=== PATIENT | male | born 1960 | race Caucasian/White ===

== ENCOUNTER 2022-02-07 13:56 | Observation (INO) ==
[2022-02-07 14:33] LABS: Hematocrit (blood only) 45.5 % (42-52); Mean Corpuscular Hemoglobin 34.9 pg (25-34); Mean Corpuscular Hgb Conc 35.2 g/dL (32-36); Mean Corpuscular Volume 99.1 fL (80-100); Platelet Count 180 K/uL (130-400); RDW Coefficient of Variation 13.4 % (11.5-14.5); RDW Standard Deviation 48.2 fL (36.4-46.3); Red Blood Count 4.59 M/uL (4.7-6.1)
--- NOTE | 2022-02-07 14:37 | CT Scan Report ---
CT head/brain wo con CLINICAL HISTORY: 61 years-old Male with Stroke Alert. Acute strokelike symptoms TECHNIQUE: Multiple axial CT images of the head were obtained without contrast. A dose lowering tech nique was utilized adhering to the principles of ALARA. CT DOSE: 773.57 mGy.cm COMPARISON: CT temporal bone study 02/10/2018 FINDINGS: No acute intracranial hemorrhage, midline shift, intracranial mass, hydrocephalus, or abnormal extra- axial collection. Age-related involutional changes. Calcifications of the falx cerebri. White matter hypodensities are suggestive of chronic microvascular ischemic disease. Ill-defined hypodensities of the left parietal and occipital lobes r measure up to 5.6 cm within the left parietal lobe on image 2 1 series 2. Prior right mastoidectomy. The right middle ear ossicles are absent. Mild mucosal thickening of the right frontal sinus. IMPRESSION: 1. Subacute to chronic appearing left parietal and occipital lobe infarcts. 2. Involutional changes with chronic microvascular ischemic disease. ACT 112: Negative or not required by law. The above report was generated using voice recognition software. It may contain grammatical, syntax o r spelling errors. Electronically signed by: Ori Reyes M.D. 02/07/2022 2:36 PM
[2022-02-07 14:39] LABS: INR 1.2 (0.9-1.1); Partial Thromboplastin Ratio 1.1; Partial Thromboplastin Time 31.5 Seconds (21.0-31.0); Prothrombin Time 12.3 Seconds (9.0-12.0)
[2022-02-07 14:57] LABS: Albumin Globulin Ratio 1.4 (0.9-2); Albumin Level 4.2 gm/dl (3.4-5.0); BUN Creatinine Ratio 12.9 (10-20); Bilirubin,Total 1.3 mg/dl (0.2-1.0); Calcium 9.8 mg/dl (8.5-10.1); Creatinine Clr Calc Pharmacy 88.6 ml/min; Globulin 2.9 gm/dl (2.5-4.0); Magnesium 1.3 mg/dl (1.7-2.4); Potassium 4.3 mmol/L (3.5-5.1); Total Protein 7.1 gm/dl (6.0-8.3)
--- NOTE | 2022-02-07 14:57 | Emergency Department Note ---
Impression & Plan Stroke ADMIT ED Provider Note HPI: The patient is a 61-year-old male with history of atrial fibrillation, on anticoagulation, longstanding history of smoking, peripheral artery disease, presents emergency department chief complaint of visual changes that been ongoing for about the past 3 weeks. Patient states that he has a history of visual problems and normally is "right eye dominant". Patient is noted over the past several weeks that his vision seems to be better in his left eye. Patient states he is also had a visual field cut in his right peripheral vision. Patient states he was hoping his symptoms would resolve therefore did not seek medical care for several weeks, saw his primary care doctor today and was advised to come to the emergency department over concern for possible ischemic stroke as a source of his symptoms. On arrival here to the ED the patient is hemodynamically stable, he is in no acute distress, ROS: -Neuro: Visual changes, ataxia *10 point review systems was conducted and is otherwise negative unless stated above *Outpatient medications and allergy history reviewed PE: General: Alert, NAD HEENT: Normocephalic, atraumatic Eyes: Extraocular eye movement is intact, no scleral erythema Pulmonary: Clear to auscultation bilaterally, no wheezing Cardio: Regular rate and rhythm GI: Abdomen is soft, nontender : No suprapubic tenderness MSK: No evidence of trauma or malformation of the extremities, no edema Skin: No evidence of rash Neuro: Alert, no focal deficits 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: 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: - An order was placed for continuous cardiac monitoring - Patient was noted to be in sinus rhythm with rate of 60 EKG: Rate: 56 Rhythm: Sinus bradycardia Intervals: Within normal limits ST changes: No ST elevation Time: 1411 NIH STROKE SCALE: 1A: Level of consciousness Alert; keenly responsive 0 1B: Ask month and age Both questions right 0 2: Horizontal extraocular movements Normal 0 3: Visual elizabeth No visual loss 0 Partial hemianopia +1 4: Facial palsy Normal symmetry 0 5A: Left arm motor drift No drift for 10 seconds 0 5B: Right arm motor drift No drift for 10 seconds 0 6A: Left leg motor drift No drift for 5 seconds 0 6B: Right leg motor drift No drift for 5 seconds 0 7: Limb Ataxia Ataxia in 1 Limb - RUE +1 8: Sensation Normal; no sensory loss 0 9: Language/aphasia Normal; no aphasia 0 10: Dysarthria Normal 0 11: Extinction/inattention No abnormality 0 TOTAL NIH SCORE =2 Medical Decision Making: Patient presented to the emergency department with some ongoing visual changes for the past 2 to 3 weeks, states he has had a right-sided visual field cut, patient states that he is having some difficulty with ambulation and feels that he is "walking into things". Patient was not sure if this was anything serious therefore did not immediately seek any medical attention, he saw his PCP today and was referred to the emergency department to be evaluated for the possibility of a stroke. On arrival to the ED the patient is noted to have some ataxia on [id number] testing on the right side, he does complain of a right-sided visual field cut, NIH is 2. He does not have any drift of the extremities on testing against gravity, symmetrical facial movements are appreciated, speech is clear. CT imaging of the head without contrast shows evidence of what appeared to be subacute occipital and parietal stroke. Patient was given aspirin in the ED. Not considered a tPA candidate or candidate for aggressive endovascular therapy secondary to his symptoms being ongoing for several weeks now. I discussed the above findings with the patient, he is in agreement for admission for secondary stroke work-up. Case was discussed with the on-call hospitalist [facility], Dr. Angel, and pt was admitted in stable condition. Diagnosis: 1. Subacute stroke 2. Visual changes 3. Ataxia Disposition: Admission Lewis Thorne DO Emergency Medicine Past Med/Surg History Medical History Atrial fibrillation rate controlled on beta esther Deep vein thrombosis (DVT) per pt hx of roughly 5yrs ago Encounter for pre-operative examination Gout Hyperlipidemia jail current use of anticoagulant xarelto daily Mixed conductive and sensorineural hearing loss of both ears Peripheral arterial disease Poor historian Surgical History History of cardiac cath (~08/2020) @ [facility] no stents History of tooth extraction S/P aortobifemoral bypass surgery (~09[place]27/20[place] [facility] [place]illect[place] S/P wisdom tooth extraction Family History Father Hypertension Other Diabetes Malignant (primary) neoplasm, unspecified No family history of adverse response to anesthesia Denies family history of Ovarian cancer Prostate cancer Myocardial infarction Breast cancer Colorectal cancer Social History Smoking Status: Current every day smoker Tobacco Type: Cigarettes Cigarettes Per Day: 20-30; Second Hand Exposure: Yes; Hx Alcohol Use: Yes Alcohol type: hard liquor Hx Substance Use: No Preferred Language: Thai Communication Ability: Effective 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 Required: No Beliefs That Will Affect Care: None marital status: Current Living Situation: Significant Other current occupational status: employed current occupation: [employer] How many Children do You have: 2 Feels Safe at Home: Yes Childhood Exposure to Second-Hand Smoke: Yes caffeine: Yes (soda) Dental Care, Regularly: No Physical Activity Frequency: Daily Seatbelt Use: sometimes Sunscreen Use: No Assistive Devices: Denture - Upper, Denture - Lower, Glasses and Hearing Aid - Bilateral Allergies Allergies Allergy/AdvReac Type Severity Reaction Status Date / Time No Known Allergies Allergy Mild Verified 02/07/22 15:23 Home Meds Home Medications Medication Instructions Recorded Confirmed magnesium aspartate-potassium 1 cap PO BID cap 10/18/21 02/07/22 aspartate 250 mg-250 mg capsule allopurinol 300 mg tablet 300 mg PO HS 12/14/21 02/07/22 atorvastatin 20 mg tablet 20 mg PO HS 12/14/21 02/07/22 calcium carbonate 500 mg calcium 500 mg PO HS 12/14/21 02/07/22 (1,250 mg) tablet cholecalciferol (vitamin D3) 125 5,000 units PO HS 12/14/21 02/07/22 mcg (5,000 unit) capsule rivaroxaban 20 mg tablet (Xarelto) 20 mg PO HS 12/14/21 02/07/22 Previous Rx's Medication Instructions Recorded metoprolol succinate 50 mg 50 mg PO BID #60 tab 03/24/21 tablet,extended release 24 hr Results & Data (ED) Vital Signs Vital Signs - 24 hr 02/07/22 13:57 02/07/22 14:05 02/07/22 14:10 Temperature 37.1 C Temperature Source Temporal Artery Scan Pulse Rate 57 L Pulse Rate [Apical] 55 L Respiratory Rate 18 18 Blood Pressure 151/76 H Blood Pressure [Left Arm] 158/73 H Blood Pressure Mean 101 Blood Pressure Mean [Left Arm] 101 Pulse Oximetry 95 98 Oxygen Delivery Method Room Air Room Air Room Air Sepsis Recent Fever Within 48 Hours No Sepsis New/Unexplained Change in Mental Status No Sepsis Action Taken by Nursing No Action Required 02/07/22 15:11 Temperature Temperature Source Pulse Rate Pulse Rate [Apical] 56 L Respiratory Rate 18 Blood Pressure Blood Pressure [Left Arm] 158/81 H Blood Pressure Mean Blood Pressure Mean [Left Arm] 106 Pulse Oximetry 99 Oxygen Delivery Method Room Air Sepsis Recent Fever Within 48 Hours Sepsis New/Unexplained Change in Mental Status Sepsis Action Taken by Nursing Laboratory Data Result diagrams: 02/07/22 14:18 02/07/22 14:18 Lab Results 02/07/22 02/07/22 02/07/22 Range/Units 14:18 14:18 14:18 WBC 7.70 (4.8-10.8) K/uL RBC 4.59 L (4.7-6.1) M/uL Hgb 16.0 (14.0-18.0) g/dL Hct 45.5 (42-52) % MCV 99.1 (80-100) fL MCH 34.9 H (25-34) pg MCHC 35.2 (32-36) g/dL RDW Std Deviation 48.2 H (36.4-46.3) fL RDW Coeff of Sherri 13.4 (11.5-14.5) % Plt Count 180 (130-400) K/uL MPV 10.0 (7.4-10.4) fL PT 12.3 H (9.0-12.0) Seconds INR 1.2 H (0.9-1.1) APTT 31.5 H (21.0-31.0) Seconds PTT Ratio 1.1 Sodium 139 (136-145) mmol/L Potassium 4.3 (3.5-5.1) mmol/L Chloride 105 (98-107) mmol/L Carbon Dioxide 28 (21-32) mmol/L Anion Gap 6 (3-11) BUN 11 (6-23) mg/dl Creatinine 0.85 (0.6-1.4) mg/dl Est Cr Clr Drug Dosing 88.6 ml/min Est GFR ( Amer) 109.0 ml/min Est GFR (Non-Af Amer) 94.0 ml/min BUN/Creatinine Ratio 12.9 (10-20) Glucose 94 (70-99(Fasting)) mg/dl Calcium 9.8 (8.5-10.1) mg/dl Magnesium 1.3 L (1.7-2.4) mg/dl Total Bilirubin 1.3 H (0.2-1.0) mg/dl AST 20 (13-39) U/L ALT 19 (7-52) U/L Alkaline Phosphatase 61 (34-104) U/L Total Protein 7.1 (6.0-8.3) gm/dl Albumin 4.2 (3.4-5.0) gm/dl Globulin 2.9 (2.5-4.0) gm/dl Albumin/Globulin Ratio 1.4 (0.9-2) Imaging Data Radiologist's Impression: Head CT 02/07/22 14:10 CT head/brain wo con CLINICAL HISTORY: 61 years-old Male with Stroke Alert. Acute strokelike symptoms TECHNIQUE: Multiple axial CT images of the head were obtained without contrast. A dose lowering technique was utilized adhering to the principles of ALARA. CT DOSE: 773.57 mGy.cm COMPARISON: CT temporal bone study 02/10/2018 FINDINGS: No acute intracranial hemorrhage, midline shift, intracranial mass, hydrocephalus, or abnormal extra-axial collection. Age-related involutional changes. Calcifications of the falx cerebri. White matter hypodensities are suggestive of chronic microvascular ischemic disease. Ill-defined hypodensities of the left parietal and occipital lobes r measure up to 5.6 cm within the left parietal lobe on image 21 series 2. Prior right mastoidectomy. The right middle ear ossicles are absent. Mild mucosal thickening of the right frontal sinus. IMPRESSION: 1. Subacute to chronic appearing left parietal and occipital lobe infarcts. 2. Involutional changes with chronic microvascular ischemic disease. ACT 112: Negative or not required by law. The above report was generated using voice recognition software. It may contain grammatical, syntax or spelling errors. Electronically signed by: Ori Reyes M.D. 02/07/2022 2:36 PM Discharge Plan Visit Data Chief Complaint: Neuro Symptoms/Deficit Stated Complaint: BLURRY VISION, DIZZY, REF BY DR BOUCHER Provider: Lewis Thorne Discharge Problem: Stroke Forms Stand Alone Forms: My [facility] IfOnly Prescriptions Prescriptions: No Action metoprolol succinate 50 mg tablet extended release 24 hr 50 mg PO BID Qty: 60 RF: 11 magnesium, potassium aspartate 250-250 mg capsule 1 cap PO BID RF: 0 atorvastatin 20 mg tablet 20 mg PO HS RF: 0 calcium carbonate 500 mg calcium (1,250 mg) tablet 500 mg PO HS RF: 0 allopurinol 300 mg tablet 300 mg PO HS RF: 0 cholecalciferol (vitamin D3) 5,000 unit capsule 5,000 units PO HS RF: 0 Xarelto 20 mg tablet 20 mg PO HS RF: 0 Referrals Referrals: Didi Pop CRNP [Primary Care Provider] - Discharge Problem: Stroke Qualifiers: CVA mechanism: unspecified Qualified Code(s): I63.9 - Cerebral infarction, unspecified
[2022-02-07] MEDS ORDERED: ASPIRIN CHEW 324 MG PO STA (15:16)
--- NOTE | 2022-02-07 15:28 | History & Physical Report ---
Date of Service February 07, 2022 Assessment & Plan (1) Stroke: Plan: Lewis is a 61-year-old male with a past medical history of hyperlipidemia, alcohol dependence, intermittent claudication, coronary calcification, peripheral artery disease, A. fib, and history of aortofemoral bypass surgery who presents with 3 weeks of visual changes and loss of visual acuity in his right eye with a peripheral field cut. Did not seek medical attention at time of symptom onset, discussed with PCP when symptoms did not improve and was recommended to present to the ER. CVA, R visual field cut and ataxia - CT: Subacute to chronic appearing left parietal and occipital lobe infarcts. Involutional changes with chronic microvascular ischemic disease. Carotid Dopplers completed, pending read\ - F/u MRI pending - Reported R hand ataxia, slight increase in finger to nose tremor but seems to correct on L sided testing ?vision related Received full dose aspirin in ER Continue aspirin 81 mg daily Lipid panel pending Increase atorvastatin from 20 mg to 40 mg Follow-up MRI pending tPA not indicated due to onset of symptoms 3 weeks prior to presentation A1c pending Mag 1.3, repletion ordered repeat morning Bili 1.3, repeat pending. No transaminitis or right upper quadrant pain COVID pending - Echo pending. pt reports comliant with Xarelto and has not missed doses, but isn't a good historian by pill name only appearance. A. fib, rate controlled anticoagulated Continue Xarelto Continue metoprolol 50 mg p.o., dose reduced for slight bradycardia. - Patient poor historian, reports he does take his meds but is not sure which ones which and describes taking pills based on appearance and is not sure of the names - nsr at bedside assessment Hyperlipidemia Statin as noted - Denies hx of CAD, reports had a cardiac eval as part of his fem pop bipass at [facility] [place] Alcohol dependence - 2 drinks daily, recently 1 week etoh free without withdrawal. Last drink 1 day ago - Follow clinically Tobacco dependence Counseling provided, cessation encouraged and discussed pathology including risk of stroke/heart attack with tobacco use - Pt reports 'I enjoy it doc, I'll eventually anyway' Precontemplative - Denies patch/gum DVT PPx: DOAC Dispo: Tele Stroke Eval CODE: Full Diet: HH after dysphagia screen (2) Carotid bruit: (3) Hyperlipidemia: (4) Alcohol dependence, continuous drinking behavior: (5) Smoker: (6) Intermittent claudication: (7) Calcification of coronary artery: (8) Peripheral arterial disease: (9) Atrial fibrillation: (10) S/P aortobifemoral bypass surgery: History of Present Illness Primary Care Provider: JASSI Mcclure Lewis is a 61-year-old male with a past medical history of hyperlipidemia, alcohol dependence, intermittent claudication, coronary calcification, peripheral artery disease, A. fib, and history of aortofemoral bypass surgery who presents with 3 weeks of visual changes and loss of visual acuity in his right eye with a peripheral field cut. Did not seek medical attention at time of symptom onset, discussed with PCP when symptoms did not improve and was recommended to present to the ER. R eye vision worsened 3-4 weeks ago History of LEFT lazy eye with corrective lenses in the past. No history of RIGHT eye problems until 1 month ago. Lost peripheral vision in R eye, thought it would come back after a day or two. Headache at onset, minimal one at time of assessment. Endorses some poor coordination with R arm, feels his strength is completely normal for him. No weakness. No nausea, vomiting, diarrhea. +mild orthostatic hypotension once and a while, none in the last week No chest pain, chest pressure, or shortness of breath has Afib, cannot feel it. In sinus at time of assessment. Endorses he takes his medications daily and has not missed any doses. Lives with Pricilla Barrera a 'lady friend' who also helps him at home. Sees June Pop as an outpt Medical History: Reviewed Medications: Reviewed Surgical History: Reviewed Allergies: Reviewed Social History: Etoh 2 per day, usually a captain and coke. Not every day. Last drink 1 day, no history of withdrawal/shakes/seizure and had recently spent a whole week at [place] without EtoH for fem-pop bipass with no withdrawal. Tobacco use, 2 packs per day for 'oh at least 40 years'. Code Status: Full Code. Surrogate would be his brother Niranjan Rodriguez. Allergies Allergy/AdvReac Type Severity Reaction Status Date / Time No Known Allergies Allergy Mild Verified 02/07/22 15:23 Home Medications Medication Instructions Recorded Confirmed Type metoprolol succinate 50 mg 50 mg PO BID #60 tab 03/24/21 02/07/22 Rx tablet,extended release 24 hr magnesium aspartate-potassium 2 cap PO DAILY cap 10/18/21 02/07/22 History aspartate 250 mg-250 mg capsule allopurinol 300 mg tablet 300 mg PO HS 12/14/21 02/07/22 History atorvastatin 20 mg tablet 20 mg PO HS 12/14/21 02/07/22 History calcium carbonate 500 mg calcium 500 mg PO HS 12/14/21 02/07/22 History (1,250 mg) tablet cholecalciferol (vitamin D3) 125 5,000 units PO HS 12/14/21 02/07/22 History mcg (5,000 unit) capsule rivaroxaban 20 mg tablet (Xarelto) 20 mg PO QPM 12/14/21 02/07/22 History Past Med/Surg History Medical History Atrial fibrillation rate controlled on beta esther Deep vein thrombosis (DVT) per pt hx of roughly 5yrs ago Encounter for pre-operative examination Gout Hyperlipidemia retirement current use of anticoagulant xarelto daily Mixed conductive and sensorineural hearing loss of both ears Peripheral arterial disease Poor historian Surgical History History of cardiac cath (~08/2020) @ [facility] no stents History of tooth extraction S/P aortobifemoral bypass surgery (~09/27/20) @ [facility] [place] S/P tonsillectomy S/P wisdom tooth extraction Family History Father Hypertension Other Diabetes Malignant (primary) neoplasm, unspecified No family history of adverse response to anesthesia Denies family history of Ovarian cancer Prostate cancer Myocardial infarction Breast cancer Colorectal cancer Social History Smoking Status: Current every day smoker Tobacco Type: Cigarettes Cigarettes Per Day: 20-30; Second Hand Exposure: Yes; Hx Alcohol Use: Yes Alcohol type: hard liquor Hx Substance Use: No Preferred Language: Frisian Communication Ability: Effective Infusion Therapy Nurse Required: No Beliefs That Will Affect Care: None marital status: Current Living Situation: Significant Other current occupational status: employed current occupation: [employer] How many Children do You have: 2 Feels Safe at Home: Yes Childhood Exposure to Second-Hand Smoke: Yes caffeine: Yes (soda) Dental Care, Regularly: No Physical Activity Frequency: Daily Seatbelt Use: sometimes Sunscreen Use: No Assistive Devices: Denture - Upper, Denture - Lower, Glasses and Hearing Aid - Bilateral Review of Systems Review of Systems: All systems reviewed & are unremarkable except as noted in HPI & below Physical Exam Physical Exam: General: A&Ox3. NAD. Cooperative. HEENT: Atraumatic, normocephalic. Pulm: CTAB A&P. -wheezes, -rales, -rhonchi. Symmetrical chest rise. No increased work of breathing. No respiratory distress. Cardiac: RRR, -mrg. Radial pulses intact and symmetrical. Abdominal: Nontender, nondistended, soft. BS present. CRANIAL NERVES: II: Pupils equal and reactive, no relative afferent pupillary defect. R lateral/peripheral field cut. III, IV, : EOM intact. R exotropia which worsens on R lateral gaze and corrects on L medial gaze V: normal sensation in V1, V2, and V3 segments bilaterally VII: no asymmetry, no nasolabial fold flattening VIII: normal hearing to speech IX, X: normal palatal elevation, no uvular deviation XI: 5/5 head turn and 5/5 shoulder shrug bilaterally XII: midline tongue protrusion MOTOR: RUE: 5/5 Shoulder internal rotation, external rotation, flexion, extension, abduction, adduction 5/5 Elbow flexion/extension, wrist flexion/extension 5/5 certified personal trainer strength, finger flexion/extension, interosseus LUE: 5/5 Shoulder internal rotation, external rotation, flexion, extension, abduction, adduction 5/5 Elbow flexion/extension, wrist flexion/extension 5/5 certified personal trainer strength, finger flexion/extension, interosseus RLE: 5/5 to hip flexion knee flexion/extension, ankle dorsiflexion/plantarflexion LLE: 5/5 to hip flexion knee flexion/extension, ankle dorsiflexion/plantarflexion REFLEXES: 2/4 patellar SENSORY: Normal to touch in upper and lower extremities without deficit or asymmetry COORD: Normal finger to nose and heel to means, no tremor, no dysmetria. Does have some finger to nose poor coordination with R index finger but corrects when done on L side of body and ?related to vision. Results & Data Results & Data ([facility]) Vital Signs (Past 12 Hours) Vital Signs Temp Pulse Pulse Resp BP BP Pulse Ox 02/07/22 15:11 56 L 18 158/81 H 99 02/07/22 14:05 37.1 C 57 L 18 151/76 H 98 02/07/22 13:57 55 L 18 158/73 H 95 PG Care Time/CCT Total # of Minutes Spent Total Time Spent with Patient: Total time spent is greater than 50% in coordination of care (as documented) at patient's floor/unit and/or counseling patient: Coding Level of Care Code 70655 Initial Inpt Care Lvl 3 Diagnoses Stroke I63.9 CVA mechanism: unspecified Carotid bruit R09.89 Hyperlipidemia E78.5 Alcohol dependence, continuous drinking behavior F10.20 Smoker F17.200 Intermittent claudication I73.9 Calcification of coronary artery I25.10; I25.84 Peripheral arterial disease I73.9 Atrial fibrillation I48.91 S/P aortobifemoral bypass surgery Z95.828 (1) Stroke CVA mechanism: unspecified Qualified Code(s): I63.9 - Cerebral infarction, unspecified
[2022-02-07] MEDS ORDERED: ACETAMINOPHEN 325 MG TAB PO PRN (17:30)
[2022-02-07] MEDS ORDERED: PHARMACIST DISCHARGE MED REC CONSULT PRN (17:30)
--- NOTE | 2022-02-07 18:41 | Magnetic Resonance Report ---
MR brain wo con CLINICAL HISTORY: CVA. Right thigh peripheral vision loss and dizziness for 3 weeks. COMPARISON STUDY: CT brain from 02/07/2022 TECHNIQUE: Multiplanar multisequence images of the Brain were performed without IV contrast. Diffusi on weighted imaging and ADC mapping was also performed. FINDINGS: Extra-axial space: There is no evidence for a subdural hematoma, There are no extra-axial fluid jess ections. Ventricles and cisterns: The ventricles are normal in size and configuration. There is no evidence f or midline shift or mass effect. Parenchyma: MR confirms the presence of a subacute infarct within the left posterior parietal-occipit al lobe. Abnormal diffusion weighted imaging and ADC mapping are present characteristic of the subacu te nature of the infarct. No significant cerebral edema is seen. There is otherwise normal krueger-white differentiation. There is mild cerebral cortical atrophy presen t. The sulci and gyri appear normal without effacement. The midline structures are unremarkable. The posterior fossa structures appear normal. There is no evidence for mass lesion. Osseous structures: The paranasal sinuses are well aerated. The mastoid air cells are well aerated. Soft tissues: No focal soft tissue abnormalities are identified. IMPRESSION: 1. MR confirms a subacute infarct involving the left posterior parietal/occipital lobe with abnormal diffusion weighted imaging and ADC mapping at this site. 2. Mild cerebral cortical atrophy is also present. ACT 112: Negative or not required by law. Electronically signed by: Damian Stovall M.D. 02/07/2022 6:39 PM
--- NOTE | 2022-02-07 18:45 | Magnetic Resonance Report ---
MR angio head wo con CLINICAL HISTORY: CVA. Right peripheral vision loss and dizziness for 3 weeks COMPARISON: MR of the brain from 622 2 TECHNIQUE: 3-D time of flight MR angiographic images of the brain were also obtained without IV contr ast. FINDINGS: Posterior circulation: There is a dominant left vertebral artery when compared to the right. Midline basilic artery is present. The right posterior cerebral artery is patent. There is occlusion at the o rigin of the left posterior cerebral artery corresponding to the infarct seen on MRI of the brain. Anterior circulation: Both internal carotid arteries are patent. The anterior cerebral and middle cer ebral arteries are patent bilaterally. No aneurysm, or vascular malformation is seen. IMPRESSION: Abnormal MRA with complete occlusion of the origin of the left posterior cerebral artery correspondin g to the infarct seen on MRI of the brain. ACT 112: Negative or not required by law. Electronically signed by: Damian Stovall M.D. 02/07/2022 6:43 PM
[2022-02-07] MEDS: MAGNESIUM SULFATE / D5W 1 GM/100 ML BAG IV SCH ×3 (18:48→21:16)
[2022-02-07] MEDS ORDERED: NSS + 20MEQ KCL 20 MEQ/1,000 ML BAG IV SCH (19:30)
[2022-02-07] MEDS ORDERED: CALCIUM CARBONATE 1250MG TAB PO SCH (21:00)
[2022-02-07] MEDS ORDERED: RIVAROXABAN 20 MG TAB PO SCH (21:00)
[2022-02-07] MEDS ORDERED: ATORVASTATIN 40 MG TAB PO SCH (21:00)
[2022-02-07] MEDS ORDERED: CHOLECALCIFEROL 5,000 UNITS 125 MCG TAB PO SCH (21:00)
[2022-02-08 07:17] LABS: Basophils # (auto) 0.01 K/uL (0-0.2); Basophils % (auto) 0.1 %; Eosinophils # (auto) 0.09 K/uL (0-0.5); Eosinophils % (auto) 1.3 %; Hematocrit (blood only) 39.8 % (42-52); Hemoglobin 14.3 g/dL (14.0-18.0); Immature Granulocytes # (auto) 0.01 K/uL (0.00-0.02); Immature Granulocytes % (auto) 0.1 %; Lymphocytes # (auto) 2.05 K/uL (1.2-3.4); Lymphocytes % (auto) 30.3 %; Mean Corpuscular Hemoglobin 35.4 pg (25-34); Mean Corpuscular Hgb Conc 35.9 g/dL (32-36); Mean Corpuscular Volume 98.5 fL (80-100); Mean Platelet Volume 10.1 fL (7.4-10.4); Monocytes # (auto) 0.27 K/uL (0.11-0.59); Neutrophils # (auto) 4.34 K/uL (1.4-6.5); Neutrophils % (auto) 64.2 %; Platelet Count 145 K/uL (130-400); RDW Coefficient of Variation 13.2 % (11.5-14.5); Red Blood Count 4.04 M/uL (4.7-6.1); White Blood Count 6.77 K/uL (4.8-10.8)
[2022-02-08 07:39] LABS: BUN Creatinine Ratio 12.2 (10-20); Calcium 8.9 mg/dl (8.5-10.1); Chol HDL Ratio 3.7 (0-5); Est GFR (African American) 110.6 ml/min; Est GFR (Non-African American) 95.4 ml/min; Magnesium 1.6 mg/dl (1.7-2.4); Potassium 4.2 mmol/L (3.5-5.1)
--- NOTE | 2022-02-08 08:39 | Neurology Consultation ---
Date of Consultation February 08, 2022 Assessment & Plan (1) Homonymous hemianopsia due to recent cerebral infarction: (2) Stroke: (3) Carotid stenosis, bilateral: (4) Alcohol dependence, continuous drinking behavior: (5) Smoker: (6) Atrial fibrillation: this patient had the onset of vision problems 2-3 weeks ago (early January) with some occasional right upper extremity dysesthesias. He also had little bit of "wooziness" and balance issues in the be getting but does not have that currently. Patient had his stroke despite being on Xarelto. MRI reveals a medium-size left posterior parietal and left occipital stroke of a subacute nature, secondary to left posterior cerebral artery occlusion. On examination he has a right homonymous hemianopsia from this stroke. He has no other focal neurologic deficits. The patient has a history of significant vascular disease including peripheral arterial disease. He has bilateral, left greater than right carotid stenosis with the left being about 70% or so. Anticoagulants tend not to help small vessel ischemic disease and interestingly his carotid stenosis has progressed despite the anticoagulation. Risk factors for stroke include chronic, longstanding, heavy cigarette smoking, as well as dyslipidemia and probable hypertension. total cholesterol was 115 and triglycerides 257. In addition, the patient has a history of significant alcohol use. This may explain his general cerebral atrophy and possibly is mild memory deficits. Recommendations: 1. control blood pressure as you are doing, aiming for a mean arterial pressure of 95-100. 2. he is a high dose statin candidate . 3. Awaiting hemoglobin A1c 4. Agree with initiating antiplatelet medication to his anticoagulation. For now, 81 mg aspirin tablet daily. 5. discontinue cigarette smoking 6. Discontinue alcohol use. 7. I can follow up as an outpatient. Otherwise, please contact me if I can be of further assistance on this case. Overall, I spent a total of 90 minutes with this case including review of records, review of CT and MRI films, direct evaluation of the patient at bedside, and discussion of the case with the patient and RN at bedside as well as Dr. Osorio, including differential diagnosis and treatment options. History of Present Illness Reason for Consultation: Patient is a 61-year-old, who I was asked to see at the request of Dr. Osorio, for neurologic consultation regarding stroke. Requesting Physician: Dr. Osorio Attending Physician: Morteza Osorio MD History of Present Illness patient has a history of severe peripheral arterial disease, status post aortobifem bypass September 2020 [facility]. He also has a history of atrial fibrillation in the he has been chronically on Xarelto daily. He has a history of dyslipidemia gout and probable hypertension. He had DVT 5 years ago. He has bilateral hearing deficits requiring hearing aids. Patient states that about 2-3 weeks ago he noted episode of feeling dizzy. He describes this as a woozy week feeling he tried to walk or. Once he fell in the bathroom 2 weeks ago because of this. After this he noted that he was not seeing to the right. 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 His decreased vision to the right was the same and have last 2 weeks he had a couple of episodes of numbness and tingling in the right upper extremity. He also had headaches intermittently when he tried to driv e/concentrate. he could bump into things on the right when he walked. Finally, he decided to come to the emergency room after talking to his primary care physician. He arrived to the emergency room February 07 at 1:57 p.m., with a temperature of 37.1, pulse 55 and regular, respiratory rate 18, blood pressure 158/73, and O2 saturation 75%. He had no focal deficits on neurologic exam and his NIH stroke scale was 2 (1 for vision blurriness and 1 for "gait ataxia". CBC, chemistry, and liver profile were unremarkable. CT scan of the head showed subacute to chronic left parieto-occipital hyp odensity, consistent with stroke. I reviewed these films. MRI of the brain revealed a moderate-size left posterior parietal and occipital stroke of a subacute nature. There was mild generalized atrophy noted ( a little more advanced then would think for his age) and mild old small vessel ischemic changes of a nonspecific nature. I reviewed these films. MR angiography of the head revealed a left posterior cerebral artery occlusion at the origin. Carotid ultrasound showed left internal carotid artery stenosis of greater than 70% (worse than the previous study of June 2020. The right carotid was less than 50% stenosis and vertebrals were patent. Overnight and today he is in sinus Ray in the 40s and 50s. Blood pressure is 145/82. He has no headache this morning and his vision issues to the right are the same. He denies any numbness, tingling, or weakness on the right side. Additional history reveals that the patient drinks alcohol just about every day. He states that he has 2 rum and cokes per day but that each drink has 3 shots of rum in it. He has been doing this for quite a while and prior to this he drank beer. Allergies Allergy/AdvReac Type Severity Reaction Status Date / Time No Known Allergies Allergy Mild Verified 02/07/22 15:23 Home Medications Medication Instructions Recorded Confirmed Type metoprolol succinate 50 mg 50 mg PO BID #60 tab 03/24/21 02/07/22 Rx tablet,extended release 24 hr magnesium aspartate-potassium 1 cap PO BID cap 10/18/21 02/07/22 History aspartate 250 mg-250 mg capsule allopurinol 300 mg tablet 300 mg PO HS 12/14/21 02/07/22 History atorvastatin 20 mg tablet 20 mg PO HS 12/14/21 02/07/22 History calcium carbonate 500 mg calcium 500 mg PO HS 12/14/21 02/07/22 History (1,250 mg) tablet cholecalciferol (vitamin D3) 125 5,000 units PO HS 12/14/21 02/07/22 History mcg (5,000 unit) capsule rivaroxaban 20 mg tablet (Xarelto) 20 mg PO HS 12/14/21 02/07/22 History Patient History Medical History Atrial fibrillation rate controlled on beta esther Deep vein thrombosis (DVT) per pt hx of roughly 5yrs ago Encounter for pre-operative examination Gout 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 Mixed conductive and sensorineural hearing loss of both ears Peripheral arterial disease Poor historian Surgical History History of cardiac cath (~08/2020) @ [facility] no stents History of tooth extraction S/P aortobifemoral bypass surgery (~09/27/20) @ [facility] [place] S/P tonsillectomy S/P wisdom tooth extraction Family History Father , age 75 from a "bone disease" Hypertension Myocardial infarction Mother , age 83 with dementia Dementia Other Diabetes Malignant (primary) neoplasm, unspecified No family history of adverse response to anesthesia Denies family history of Ovarian cancer Prostate cancer Breast cancer Colorectal cancer Social History Smoking Status: Current every day smoker Tobacco Type: Cigarettes Age Started Using Tobacco: 20; packs per day: 2; Second Hand Exposure: Yes; Do You Dip or Chew Tobacco: No; Tobacco Cessation Education Requested by Patient: No Hx Alcohol Use: Yes Alcohol type: beer and hard liquor Alcohol Intake Frequency: 4 or More x per/Week Alcohol Intake Frequency Comment: see HPI Hx Substance Use: No Preferred Language: French Communication Ability: Effective Publications Editor Required: No Beliefs That Will Affect Care: None marital status: Current Living Situation: Alone current occupational status: employed current occupation: [employer] How many Children do You have: 2 Other Information That Helps Us Care for You: No Feels Safe at Home: Yes Safety Concerns: Feels Safe At This Time Childhood Exposure to Second-Hand Smoke: Yes caffeine: Yes (soda) Dental Care, Regularly: No Physical Activity Frequency: Daily Seatbelt Use: sometimes Sunscreen Use: No Assistive Devices: None Review of Systems Constitutional: no fever, no fatigue and no weakness Eyes: + loss of peripheral vision and + worsening vision; no diplopia and no eye pain Ear, Nose, Mouth, Throat: + hearing loss; no ear pain, no tinnitus, no dizziness, no snoring, no hoarseness and no dysphagia Respiratory: no cough and no dyspnea Cardiovascular: no chest pain, no palpitations and no lightheadedness Gastrointestinal: no abdominal pain, no nausea and no vomiting Musculoskeletal: no back pain, no neck pain, no radicular pain, no joint pain and no myalgia Integumentary: no rash and no lesions Neurologic: no gait abnormality, no localized weakness, no generalized weakness, no tingling, no numbness, no tremor(s), no abnormal movements, no headache(s), no abnormal speech, no confusion and no memory loss Psychiatric: no depression, no irritability, no anxiety, no difficulty concentrating, no confusion and no hallucinations Endocrine: no fatigue and no flushing Hematologic / Lymphatic: no easy bleeding and no easy bruising Allergy / Immunological: no urticaria and no problem reported Exam (Neuro) Physical Exam: The patient is right-handed. The patient is awake, alert, and attentive. Speech is normal without any aphasia or dysarthria. The patient can name objects, repeat phrases, and has normal spontaneous speech. Mentation and thought processes are intact, with orientation to person, place and time, and normal fund of knowledge. Attention and concentration are normal. Mood and affect are normal and appropriate. General appearance and grooming are normal. Short and long-term memory are intact. Pupils are 3 mm bilaterally and reactive to light. Extraocular eye muscles are intact without nystagmus. Visual acuity and visual elizabeth seem normal grossly to confrontation. There are no deficits to sensation in the face in all 3 distributions of the fifth cranial nerve bilaterally. Corneal reflexes are positive bilaterally. Facial strength and symmetry was normal bilaterally. Hearing Is markedly decreased bilaterally and he uses hearing age which helped considerably. Palate moves well without asymmetry. There is normal sternocleidomastoid and trapezius (shoulder shrug) strength bilaterally. Tongue is midline with good strength bilaterally. Neck has a full range of motion without discomfort. There are no cervical bruits bilaterally. There are no cranial or ocular bruits. Cervical, thoracic, and lumbar spine are nontender to palpation. Gait is narrow based, with good arm swing And turns, however, he was a little slow and cautious. Balance is normal eyes open or closed. With outstretched arms there is no drift. There are no resting, postural, or action tremors. There is no ataxia with finger to nose testing. There is good facility in the hands. No other abnormal involuntary movements are noted. 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 Motor strength is 5/5 diffusely in the legs bilaterally including hip flexors, quadriceps, hamstrings, gastrocnemius, tibialis anterior, tibialis posterior, and Peroneii muscles. Toe extensors are normal and there is good bulk in the extensor digitorum brevis muscles bilaterally. The limbs have good tone without rigidity or spasticity. There is no atrophy noted in the muscles. Muscle bulk is normal, there is no tenderness to palpation, no myotonia to percussion, and no fasciculations seen. Sensory examination is intact to touch and pin throughout all 4 limbs diffusely. Reflexes are 2/4 in the biceps, triceps, brachioradialis, and quadriceps tendons bilaterally. Achilles tendon reflexes were 1/4 bilaterally. There is no clonus bilaterally. Toes are downgoing with plantar stimulation bilaterally. Peripheral pulses are present and of normal quality distally in all 4 limbs. There is no peripheral edema noted in the limbs. Results & Data ([facility]) Vital Signs (Past 12 Hours) Vital Signs Temp Pulse Pulse Resp BP BP Pulse Ox 02/08/22 08:13 36.5 C 60 18 145/82 H 94 02/08/22 08:09 79 02/08/22 03:33 36.8 C 57 L 17 142/75 H 92 02/08/22 03:05 46 L 02/07/22 23:37 36.5 C 50 L 17 138/66 95 PG Care Time/CCT Total # of Minutes Spent Total Time Spent with Patient: Total time spent is greater than 50% in coordination of care (as documented) at patient's floor/unit and/or counseling patient: Coding Level of Care Code 91717 Inpt Consult Level 5 Diagnoses Stroke I63.9 CVA mechanism: unspecified Homonymous hemianopsia due to recent cerebral infarction I69.398; H53.469 Carotid stenosis, bilateral I65.23 Alcohol dependence, continuous drinking behavior F10.20 Smoker F17.200 Atrial fibrillation I48.91 Time Spent (min) 90 (1) Stroke CVA mechanism: unspecified Qualified Code(s): I63.9 - Cerebral infarction, unspecified
[2022-02-08] MEDS ORDERED: MAGNESIUM OXIDE 400 MG TAB PO SCH (09:00)
[2022-02-08] MEDS ORDERED: METOPROLOL SUCC 50MG EXT REL TAB PO SCH (09:00)
[2022-02-08] MEDS ORDERED: ASPIRIN 81 MG ECTAB PO SCH (09:00)
[2022-02-08 09:09] LABS: Estimated Average Glucose 105 mg/dl; Hemoglobin A1C 5.3 % (4.5-5.6)
[2022-02-08] MEDS ORDERED: OPTIRAY 320 125ml IV ONE (09:16)
--- NOTE | 2022-02-08 10:04 | CT Scan Report ---
CT angio neck with con CLINICAL HISTORY: ICA stenosis with CVA COMPARISON STUDY: None CT DOSE: 429.86 mGy.cm TECHNIQUE: CT Angio of the neck was performed.followed by image post processing with coronal, and sa gittal MIP reformats.. Stenosis assessment by NASCET criteria. Contrast Volume: Optiray 320, 120 ml FINDINGS: Vascular findings: Right common carotid artery: Patent without significant stenosis. Right internal carotid artery: Patent without significant stenosis. Right vertebral artery: Patent without significant stenosis. Left common carotid artery: Patent without significant stenosis. Left internal carotid artery: There is noncalcified plaque present at the origin of the left internal carotid artery with 99% stenosis present via NASCET criteria..Mild poststenotic dilatation is presen t of the proximal internal carotid artery. Left vertebral artery: Patent without significant stenosis. Nonvascular findings: The parotid and submandibular salivary glands appear normal. There is no enlarged cervical adenopathy noted. The airway appears patent. The thyroid gland appears within normal limits. Mild centrilobular emphysematous changes are seen involving the lung apices bilaterally.. Impression: 1. 99% stenosis of the origin of the left ICA with mild poststenotic dilatation. The patient is at [facility] for occlusion at any time. 2. Mild centrilobular emphysematous changes involving the lung apices bilaterally. A tiger text was sent to Dr. Tadeo. ACT 112: Negative or not required by law. Electronically signed by: Damian Stovall M.D. 02/08/2022 10:01 AM
--- NOTE | 2022-02-08 14:14 | Discharge Summary ---
Date of Service February 08, 2022 Admission HPI Per Admitting Provider Lewis is a 61-year-old male with a past medical history of hyperlipidemia, alcohol dependence, intermittent claudication, coronary calcification, peripheral artery disease, A. fib, and history of aortofemoral bypass surgery who presents with 3 weeks of visual changes and loss of visual acuity in his right eye with a peripheral field cut. Did not seek medical attention at time of symptom onset, discussed with PCP when symptoms did not improve and was recommended to present to the ER. R eye vision worsened 3-4 weeks ago History of LEFT lazy eye with corrective lenses in the past. No history of RIGHT eye problems until 1 month ago. Lost peripheral vision in R eye, thought it would come back after a day or two. Headache at onset, minimal one at time of assessment. Endorses some poor coordination with R arm, feels his strength is completely normal for him. No weakness. No nausea, vomiting, diarrhea. +mild orthostatic hypotension once and a while, none in the last week No chest pain, chest pressure, or shortness of breath has Afib, cannot feel it. In sinus at time of assessment. Endorses he takes his medications daily and has not missed any doses. Lives with Pricilla Barrera a 'lady friend' who also helps him at home. Sees June Pop as an outpt Medical History: Reviewed Medications: Reviewed Surgical History: Reviewed Allergies: Reviewed Social History: Etoh 2 per day, usually a captain and coke. Not every day. Last drink 1 day, no history of withdrawal/shakes/seizure and had recently spent a whole week at [place] without EtoH for fem-pop bipass with no withdrawal. Tobacco use, 2 packs per day for 'oh at least 40 years'. Code Status: Full Code. Surrogate would be his brother Niranjan Rodriguez. Principal Diagnosis Right homonymous hemianopsia 2/2 CVA Discharge Exam General: A&Ox3. NAD. Cooperative. HEENT: Atraumatic, normocephalic. Pulm: CTAB A&P. -wheezes, -rales, -rhonchi. Symmetrical chest rise. No increased work of breathing. No respiratory distress. Cardiac: RRR, -mrg. Radial pulses intact and symmetrical. Abdominal: Nontender, nondistended, soft. BS present. CRANIAL NERVES: II: Pupils equal and reactive, no relative afferent pupillary defect. R lateral/peripheral field cut. III, IV, : EOM intact. R exotropia which worsens on R lateral gaze and corrects on L medial gaze V: normal sensation in V1, V2, and V3 segments bilaterally VII: no asymmetry, no nasolabial fold flattening VIII: normal hearing to speech IX, X: normal palatal elevation, no uvular deviation XI: 5/5 head turn and 5/5 shoulder shrug bilaterally XII: midline tongue protrusion MOTOR: RUE: 5/5 Shoulder internal rotation, external rotation, flexion, extension, abduction, adduction 5/5 Elbow flexion/extension, wrist flexion/extension 5/5 data entry assistant strength, finger flexion/extension, interosseus LUE: 5/5 Shoulder internal rotation, external rotation, flexion, extension, abduction, adduction 5/5 Elbow flexion/extension, wrist flexion/extension 5/5 data entry assistant strength, finger flexion/extension, interosseus RLE: 5/5 to hip flexion , ankle dorsiflexion/plantarflexion LLE: 5/5 to hip flexion , ankle dorsiflexion/plantarflexion REFLEXES: 2/4 patellar SENSORY: Normal to touch in upper and lower extremities without deficit or asymmetry COORD: Continues with some finger to nose poor coordination with R index finger when tested to the right side of the body, but corrects when done on L side of body with no ataxia and likely related to vision Discharge Data Allergies Allergy/AdvReac Type Severity Reaction Status Date / Time No Known Allergies Allergy Mild Verified 02/07/22 15:23 Consultations 02/07/22 15:17 ED Decision to Admit Stat 02/07/22 17:30 Consult Neurology Routine 02/08/22 08:02 Consult Vascular Surgery Routine Ordered Studies 02/07/22 14:10 CT head/brain wo con Stat 02/07/22 17:30 MR angio head wo con Urgent MR brain wo con Routine 02/08/22 08:08 CT angio neck with con Routine Hospital Course (1) Stroke: Lewis is a 61-year-old male with a past medical history of hyperlipidemia, alcohol dependence, intermittent claudication, coronary calcification, peripheral artery disease, A. fib, and history of aortofemoral bypass surgery who presents with 3 weeks of visual changes and loss of visual acuity in his right eye with a peripheral field cut. Did not seek medical attention at time of symptom onset, discussed with PCP when symptoms did not improve and was recommended to present to the ER. On evaluation patient was found to have focal right homonymous hemianopsia. Follow-up MRI showed left sided parietal and occipital subacute CVA.Patient did have 99% stenosis of the origin of the left ICA at risk for occlusion. Patient did not show any new or worsening deficits during admission. Patient was started on aspirin daily and his atorvastatin was increased from 20 to 40 mg. While patient is a high-dose statin candidate, his LDL fraction was less than 40 and this was deferred to follow-up as outpatient with PCP/neurology and lipid recheck within 1 month. Neurology was consulted who agreed with blood pressure control, A1c check, initiating antiplatelet, tobacco cessation, alcohol cessation, and outpatient follow-up. tPA was not indicated due to onset of symptoms of approximately 3 weeks prior to ER visit. Given the high-grade stenosis seen on CT angio case was discussed with vascular surgery who recommended medical management at this time, with 2-week follow-up for potential CEA as outpatient. To do as outpatient: 1. Continue atorvastatin 40 mg daily. Repeat lipid and LFT check within 1 month 2. Continue aspirin 81 mg daily 3. Continue tobacco cessation efforts, patient generally precontemplative to contemplative during admission. Support resources offered, patient declined quit strategies/and RT 4. Follow-up with vascular surgery as outpatient 5. Ocular rehab as outpatient CVA, R visual field cut and ataxia - CT: Subacute to chronic appearing left parietal and occipital lobe infarcts. Involutional changes with chronic microvascular ischemic disease. - CTA-N: 1. 99% stenosis of the origin of the left ICA with mild poststenotic dilatation. The patient is at risk for occlusion at any time. 2. Mild centrilobular emphysematous changes involving the lung apices bilaterally. - MRI: 1. MR confirms a subacute infarct involving the left posterior parietal/occipital lobe with abnormal diffusion weighted imaging and ADC mapping at this site.2. Mild cerebral cortical atrophy is also present. - MRA: Abnormal MRA with complete occlusion of the origin of the left posterior cerebral artery corresponding to the infarct seen on MRI of the brain. - Reported R hand ataxia, slight increase in finger to nose tremor but seems to correct on L sided testing ?vision related Received full dose aspirin in ER Continue aspirin 81 mg daily Lipid panel with total cholesterol 115, LDL 33. High-dose statin deferred due to relatively low LDL, moderate potency atorvastatin 40 mg continued on discharge tPA not indicated due to onset of symptoms 3 weeks prior to presentation A1c normal Mag 1.3, repleted - Echo pending. pt reports comliant with Xarelto and has not missed doses, A. fib, rate controlled anticoagulated Continue Xarelto Continue metoprolol 50 mg p.o., dose reduced for slight bradycardia. - Patient poor historian, reports he does take his meds but is not sure which ones which and describes taking pills based on appearance and is not sure of the names - nsr at bedside assessment Hyperlipidemia Statin as noted - Denies hx of CAD, reports had a cardiac eval as part of [place] [facility] [place] Alcohol dependence - 2 drinks daily, recently 1 week etoh free without withdrawal. Last drink 1 day ago - Follow clinically Tobacco dependence Counseling provided, cessation encouraged and discussed pathology including risk of stroke/heart attack with tobacco use - Pt reports 'I enjoy it doc, I'll eventually anyway' Precontemplative to contemplative during admission - Denies patch/gum DVT PPx: DOAC Dispo: Tele Stroke Eval CODE: Full Diet: HH after dysphagia screen (2) Carotid bruit: (3) Hyperlipidemia: (4) Alcohol dependence, continuous drinking behavior: (5) Smoker: (6) Intermittent claudication: (7) Calcification of coronary artery: (8) Peripheral arterial disease: (9) Atrial fibrillation: (10) S/P aortobifemoral bypass surgery: Total Time Total Time Spent Total Time Spent (In Minutes): Time spend day of discharge 80 minutes including direct patient care, documentation, review of labs and images, and coordination of care. Discharge Plan Discharge Items Patient Disposition: Home - Home Health Services Reason For Visit: CVA Discharge Diagnosis: CVA Activity: Per Instructions section Non-emergency contact: Primary Care Provider and Surgeon Call non-emergency contact if: you have any medication questions Follow-up/Referrals: Didi Pop CRNP [Primary Care Provider] - Clifford Osman MD [Physician] - Walter Cabrera MD [Physician] - Diet: Heart Healthy Addtl Attending Provider Instructions: You were seen in the hospital for peripheral right vision loss. A MRI showed a medium sized left posterior parietal and left occipital stroke. Your case was discussed with neurology, you have been prescribed medications as below to help prevent further strokes. You were found to have severe stenosis of yourLeft ICA of 99% which could become occluded at any time. This was discussed with you and with vascular surgery who saw you in consultation. Medical management with medications as below was recommended, and a follow-up in their office in 2 weeks for carotid endarterectomy was recommended. You have been prescribed an antiplatelet medication to help prevent future strokes, aspirin. Please take aspirin 81 mg by mouth every day. You have been prescribed a cholesterol medication to help lower cholesterol and also stabilize plaques to prevent stroke. Please take atorvastatin 40 mg by mouth every evening. This replaces the 20 mg dose she had previously been prescribed. You are a candidate for a even higher (80 mg) dose, however 1 portion of your cholesterol was actually slightly low so this is being deferred for a moderate potency dose with close follow-up with your primary care physician and a lipid recheck in approximately 1 month. Your hemoglobin A1c was normal and did not indicate that you require treatment for diabetes. It is highly recommend that you quit cigarette smoking as this more than doubles your risk of having further strokes/heart attacks. Your stroke has affected your vision, and you have complete loss of your right peripheral visual field. You should not drive at this time, and should not drive unless you are able to be cleared either by your primary care physician or neurologist after outpatient follow-up. A follow-up appointment is being scheduled for you with your primary care physician, with whom you should be seen within 1 week, and with vascular surgery who will see you in approximately 2 weeks. If you develop any new or worsening symptoms including fever, chills, sweats, chest pain, chest pressure, difficulty breathing, uncontrolled nausea/vomiting, rash, wheezing, passing out or nearly passing out, bleeding, black/bloody bowel movements, or other new or concerning symptoms please call your primary care physician, or call 911 for re-evaluation in the emergency department if you are very concerned. Pending Studies at Discharge: No Stand-Alone Forms: My [employer], Smoking Cessation Medications and DC Order Prescriptions: New aspirin 81 mg Tablet,Delayed Release (Dr/Ec) 81 mg PO DAILY Qty: 30 RF: 0 Continued metoprolol succinate 50 mg tablet extended release 24 hr 50 mg PO BID Qty: 60 RF: 11 magnesium, potassium aspartate 250-250 mg capsule 1 cap PO BID RF: 0 calcium carbonate 500 mg calcium (1,250 mg) tablet 500 mg PO HS RF: 0 allopurinol 300 mg tablet 300 mg PO HS RF: 0 cholecalciferol (vitamin D3) 5,000 unit capsule 5,000 units PO HS RF: 0 Xarelto 20 mg tablet 20 mg PO HS RF: 0 Changed atorvastatin 20 mg tablet 40 mg PO HS Qty: 0 RF: 0 Discharge Orders: Discharge Order (Routine); Ordered 02/08/22 Ordered By: Morteza Osorio Admission Data Admit Date/Time: 02/07/22 15:45 Attending Provider: Morteza Osorio Admit Provider: Morteza Osorio Primary Care Provider: Didi Pop Other Providers: Morteza Osorio ; Clifford Osman ; Walter Cabrera Coding Level of Care Code D/C DAY MANAGEMENT >30 MINS Diagnoses Stroke I63.9 CVA mechanism: unspecified Carotid bruit R09.89 Hyperlipidemia E78.5 Alcohol dependence, continuous drinking behavior F10.20 Smoker F17.200 Intermittent claudication I73.9 Calcification of coronary artery I25.10; I25.84 Peripheral arterial disease I73.9 Atrial fibrillation I48.91 S/P aortobifemoral bypass surgery Z95.828
--- NOTE | 2022-02-08 14:20 | Consultation ---
Date of Consultation February 08, 2022 Assessment & Plan (1) Carotid stenosis, bilateral: Pt with severe l ICA stenosis on CTA. Pt's imaging reviewed by Dr Cabrera. Recommends pt undergo L CEA. Will see pt in office in 2 weeks to discuss further. Pt agreeable. History of Present Illness Reason for Consultation: JENI Attending Physician: Morteza Osorio MD History of Present Illness 61 yo m with hx of gout, hyperlipidemia, ETOH dependency, PAD, a fib, admitted with R sided vision disturbance, seen in consultation today for L ICA stenosis. Pt has hx of aortobi-iliac BPG at [facility] [place] in 09/[place]. Pt states he noticed the peripheral vision in his R eye was missing about 2-3 weeks ago. States he felt off-balance for 1 or 2 days as well, but this resolved. Vision changes have not changed. Denies PABLO, confusion, facial droop, unilateral extremity weakness numbness or tingling, chest pain, SOB, abd pain, N/V, rest pain, claudication, ulcers, other complaints. Pt smokes 2 PPD for many years. CTA neck demonstrates pre-occlusive L ICA stenosis. MRI brain demonstrates subacute L parietal infarct. Allergies Allergy/AdvReac Type Severity Reaction Status Date / Time No Known Allergies Allergy Mild Verified 02/07/22 15:23 Home Medications Medication Instructions Recorded Confirmed Type metoprolol succinate 50 mg 50 mg PO BID #60 tab 03/24/21 02/07/22 Rx tablet,extended release 24 hr magnesium aspartate-potassium 1 cap PO BID cap 10/18/21 02/07/22 History aspartate 250 mg-250 mg capsule allopurinol 300 mg tablet 300 mg PO HS 12/14/21 02/07/22 History atorvastatin 20 mg tablet 20 mg PO HS 12/14/21 02/07/22 History calcium carbonate 500 mg calcium 500 mg PO HS 12/14/21 02/07/22 History (1,250 mg) tablet cholecalciferol (vitamin D3) 125 5,000 units PO HS 12/14/21 02/07/22 History mcg (5,000 unit) capsule rivaroxaban 20 mg tablet (Xarelto) 20 mg PO HS 12/14/21 02/07/22 History aspirin 81 mg tablet,delayed 81 mg PO DAILY #30 tab 02/08/22 Rx release Patient History Medical History Atrial fibrillation rate controlled on beta esther Deep vein thrombosis (DVT) per pt hx of roughly 5yrs ago Encounter for pre-operative examination Gout 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 Mixed conductive and sensorineural hearing loss of both ears Peripheral arterial disease Poor historian Surgical History History of cardiac cath (~08/2020) @ [facility] no stents History of tooth extraction S/P aortobifemoral bypass surgery (~09/27/20) @ [facility] [place] S/P tonsillectomy S/P wisdom tooth extraction Family History Father , age 75 from a "bone disease" Hypertension Myocardial infarction Mother , age 83 with dementia Dementia Other Diabetes Malignant (primary) neoplasm, unspecified No family history of adverse response to anesthesia Denies family history of Ovarian cancer Prostate cancer Breast cancer Colorectal cancer Social History Smoking Status: Current every day smoker Tobacco Type: Cigarettes Age Started Using Tobacco: 20; packs per day: 2; Second Hand Exposure: Yes; Hx Alcohol Use: Yes Alcohol type: beer and hard liquor Alcohol Intake Frequency: 4 or More x per/Week Alcohol Intake Frequency Comment: see HPI Hx Substance Use: No Preferred Language: [place] Communication Ability: Effective Retail Service Technician Required: No Beliefs That Will Affect Care: None marital status: Single Current Living Situation: Alone current occupational status: employed current occupation: [employer] How many Children do You have: 2 Feels Safe at Home: Yes Childhood Exposure to Second-Hand Smoke: Yes caffeine: Yes (soda) Dental Care, Regularly: No Physical Activity Frequency: Daily Seatbelt Use: sometimes Sunscreen Use: No Assistive Devices: None Review of Systems Review of Systems: All systems reviewed & are unremarkable except as noted in HPI & below Physical Exam Constitutional: WD/WN, vitals as above cooperative and comfortable; not in distress ENMT: Ears: + hearing impairment Neck: trachea midline Respiratory: normal respiratory effort Auscultation: lungs clear to auscultation bilaterally and + diminished lung sounds Cardiovascular: Rate/Rhythm: + irregularly irregular Vessels: femoral pulses present, posterior tibial pulses present, dorsalis pedis pulses present and radial pulses present; + abnormal peripheral pulses Extremities: normal capillary refill; no edema Gastrointestinal (Abdomen): Inspection/Auscultation: abdomen normal to inspection and normal bowel sounds Percussion/Palpation: abdomen soft; abdomen nontender Musculoskeletal: no cyanosis or clubbing, extremities motor strength 5/5 Skin: no rashes, warm and dry Neurologic: moves all extremities and awake; no focal motor deficits and not confused Psychiatric: A+Ox3, euthymic affect Results & Data ([facility]) Vital Signs (Past 12 Hours) Vital Signs Temp Pulse Pulse Resp BP Pulse Ox 02/08/22 11:27 36.5 C 50 L 18 138/74 99 02/08/22 08:13 36.5 C 60 18 145/82 H 94 02/08/22 08:09 79 02/08/22 03:33 36.8 C 57 L 17 142/75 H 92 02/08/22 03:05 46 L
[2022-02-08] MEDS ORDERED: STROKE PATIENT DISCHARGE PRN (14:22)
--- NOTE | 2022-02-08 14:50 | Pharmacy Report ---
Pharmacist Stroke Counseling - Date of Service February 08, 2022 - Scope: Pharmacy has been consulted to provide medication discharge counseling for this patient admitted with [ischemic stroke] [hemorrhagic stroke] [transient ischemic attack] as per the Pharmacist Discharge Counseling for Stroke Patients Manuela morris - Medications on Discharge: Medication Instructions Recorded Confirmed magnesium aspartate-potassium 1 cap PO BID cap 10/18/21 02/07/22 aspartate 250 mg-250 mg capsule allopurinol 300 mg tablet 300 mg PO HS 12/14/21 02/07/22 calcium carbonate 500 mg calcium 500 mg PO HS 12/14/21 02/07/22 (1,250 mg) tablet cholecalciferol (vitamin D3) 125 5,000 units PO HS 12/14/21 02/07/22 mcg (5,000 unit) capsule rivaroxaban 20 mg tablet (Xarelto) 20 mg PO HS 12/14/21 02/07/22 Medication Instructions Recorded metoprolol succinate 50 mg 50 mg PO BID #60 tab 03/24/21 tablet,extended release 24 hr aspirin 81 mg tablet,delayed 81 mg PO DAILY #30 tab 02/08/22 release atorvastatin 20 mg tablet 40 mg PO HS #0 tab 02/08/22 - Action: The above medications, specifically ones for stroke treatment/prophylaxis, have been reviewed in detail with the patient and/or patient passenger relations representative(s) prior to discharge. This includes indication, common adverse reactions, drug interactions, and medication administration. Medication counseling has been employed using the teach-back method to ensure understanding. - Outcome: The patient and/or patient passenger relations representative(s) have demonstrated understanding of the medications. Additional comments: Reviewed medication changes with patient and he verbalized understanding of changes. Talked about tobacco cessation and discussed how there are OTC options available. No other questions/concerns from patient at this time Thank you for allowing pharmacy to be involved in the care of this patient. Please call [phone] with any additional questions
--- NOTE | 2022-02-08 22:53 | Electrocardiogram Report ---
Test Reason : Blood Pressure : / mmHG Vent. Rate : 056 BPM Atrial Rate : 056 BPM P-R Int : 150 ms QRS Dur : 078 ms QT Int : 438 ms P-R-T Axes : 056 046 029 degrees QTc Int : 422 ms Sinus bradycardia Otherwise normal ECG No previous ECGs available Confirmed by Kevan Smith ([id number]) on 02/08/2022 10:53:04 PM Referred By: Ponce Cortez Confirmed By:Kevan Smith
== END 2022-02-08 16:18 | disposition home health service (06) ==
LOC: ED 13:56 → EDINP 15:45 → INTOOBSV 15:45 → EDINP 17:00 → 2E 23:30

== ENCOUNTER 2022-03-19 05:29 | Inpatient (IN) ==
--- NOTE | 2022-03-13 09:25 | Anesthesiology Consultation ---
Date of Service March 13, 2022 Assessment & Plan (1) Encounter for pre-operative examination: - discharge summary 02/08/22 [facility]: "...hyperlipidemia, alcohol dependence, intermittent claudication, coronary calcification, peripheral artery disease, A. fib, and history of aortofemoral bypass surgery...focal right homonymous hemianopsia. Follow-up MRI showed left sided parietal and occipital subacute CVA.Patient did have 99% stenosis of the origin of the left ICA at risk for occlusion...tPA was not indicated due to onset of symptoms of approximately 3 weeks prior to ER visit. 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 Surgeon arranging preop COVID testing, scheduled 03/15/2022. Awaiting results. Chart Review Chart Review: Acceptable Risk for Surgery and Patient NOT seen in Pre Admission Testing History Surgery Operation Date: 03/19/22 07:30 Proposed Procedures p Carotid Endarterectomy - Walter Cabrera MD Height/Weight Height: 5 ft 8 in Weight: 68.039 kg Allergies Allergy/AdvReac Type Severity Reaction Status Date / Time No Known Allergies Allergy Mild Verified 03/06/22 11:16 Medications Home Medications Medication Instructions Recorded Confirmed Last Taken metoprolol succinate 50 mg 50 mg PO BID #60 tabs 03/24/21 03/06/22 02/07/22 tablet,extended release 24 hr magnesium aspartate-potassium 1 cap PO BID 10/18/21 03/06/22 02/07/22 aspartate 250 mg-250 mg capsule allopurinol 300 mg tablet 300 mg PO HS 12/14/21 03/06/22 02/06/22 calcium carbonate 500 mg calcium 500 mg PO HS 12/14/21 03/06/22 02/06/22 (1,250 mg) tablet cholecalciferol (vitamin D3) 125 5,000 units PO HS 12/14/21 03/06/22 02/06/22 mcg (5,000 unit) capsule rivaroxaban 20 mg tablet (Xarelto) 20 mg PO HS 12/14/21 03/06/22 02/06/22 aspirin 81 mg tablet,delayed 81 mg PO QPM 03/06/22 03/06/22 Unknown release atorvastatin 40 mg tablet 40 mg PO QPM 03/06/22 03/06/22 Unknown Past Medical History Medical History (Updated 03/13/22 @ 09:13 by Leslie Mehta PA-C) Alcohol dependence, continuous drinking behavior Atrial fibrillation rate controlled on beta esther - 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 CVA (cerebral vascular accident) 01/2022-residual visual field limitations and R hand ataxia Gout Hx of deep venous thrombosis taking xarelto Hyperlipidemia prison current use of anticoagulant xarelto daily 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 Milton - no stents: LM - medium caliber, 20% ostial stenosis LAD -medium caliber, 40% mid segment stenosis, small distal vessel wraps around apex. Circumflex -large caliber, gives off large bifurcating OM1 with 30% proximal stenosis. RCA -dominant, small caliber, 40-50 % diffuse proximal disease. Distal vessel/right PDA without significant disease. History of colonoscopy History of tooth extraction S/P aortobifemoral bypass surgery (~09/27/20) @ [facility] [place] S/P tonsillectomy S/P wisdom tooth extraction Social History Smoking Status: Current every day smoker tobacco type: cigarettes Smoking cigarettes per day: 1/2 pk/day Do You Dip or Chew Tobacco: No Hx Alcohol Use: Yes Alcohol type: hard liquor alcohol intake frequency: holidays/special occasions only Hx Substance Use: No substance use type: does not use Lab Results Anesthesia Preop Results Results Anesthesia Widget: WBC 6.77 K/uL (4.8-10.8) 02/08/22 Hgb 14.3 g/dL (14.0-18.0) 02/08/22 Hct 39.8 % (42-52) L 02/08/22 Plt 145 K/uL (130-400) 02/08/22 Na 138 mmol/L (136-145) 02/08/22 K 4.2 mmol/L (3.5-5.1) 02/08/22 Cl 108 mmol/L (98-107) H 02/08/22 CO2 28 mmol/L (21-32) 02/08/22 BUN 10 mg/dl (6-23) 02/08/22 Creat 0.82 mg/dl (0.6-1.4) 02/08/22 Glucose Level 87 mg/dl (70-99(Fasting)) 02/08/22 PT 12.3 Seconds (9.0-12.0) H 02/07/22 PTT 31.5 Seconds (21.0-31.0) H 02/07/22 INR 1.2 (0.9-1.1) H 02/07/22 HA1c 5.3 % (4.5-5.6) 02/08/22 SARS-CoV-2, RNA, NAAT NEGATIVE (NEGATIVE) 02/07/22 Testing Electrocardiogram Date: 02/07/22 Sinus bradycardia, rate 56 bpm Echocardiogram Date: 03/08/22 EF 65% Normal LV wall motion No LVH Normal LV diastolic function No significant valvular abnormalities Normal estimated PASPs, 18 mmHg Aortic root at sinus of Valsalva borderline dilated measuring 3.5 cm Cardiac Catheterization Date: 09/02/20 LM -medium caliber, 20% ostial stenosis LAD -medium caliber, 40% mid segment stenosis, small distal vessel wraps around apex. Circumflex -large caliber, gives off large bifurcating OM1 with 30% proximal stenosis. RCA -dominant, small caliber, 40-50 % diffuse proximal disease. Distal vessel/right PDA without significant disease Other Testing Neck CTA 02/07/22 Impression: 1. 99% stenosis of the origin of the left ICA with mild poststenotic dilatation. The patient is at risk for occlusion at any time. 2. Mild centrilobular emphysematous changes involving the lung apices bilaterally. Head MRA 02/07/22 Abnormal MRA with complete occlusion of the origin of the left posterior cerebral artery corresponding to the infarct seen on MRI of the brain. Brain MRI 02/07/22 1. MR confirms a subacute infarct involving the left posterior parie mitchell/occipital lobe with abnormal diffusion weighted imaging and ADC mapping at this site. 2. Mild cerebral cortical atrophy is also present. Head CT 02/07/22 1. Subacute to chronic appearing left parietal and occipital lobe infarcts. 2. Involutional changes with chronic microvascular ischemic disease. CT lung 06/09/21 1. Emphysema. 2. No concerning pulmonary lesion is identified. 3. There is no airspace consolidation or pleural effusion. 4. Advanced coronary artery calcification.
[2022-03-19] MEDS ORDERED: LACTATED RINGER'S 1,000 ML IV SCH (06:00)
[2022-03-19] MEDS ORDERED: CEFAZOLIN 1,000 MG/7.5 ML SYR IV SCH (06:00)
[2022-03-19] MEDS ORDERED: fentaNYL citrate 100 MCG/2 ML VIAL ONE (07:01)
[2022-03-19] MEDS ORDERED: HEPARIN (PORCINE) 1000 UNIT/ML 10 ML (CATH LAB USE ONLY) ONE (07:04)
[2022-03-19] MEDS ORDERED: THROMBIN FOR SOLN 20000 UNIT KIT ONE (07:05)
[2022-03-19] MEDS ORDERED: ATROPINE SULFATE 0.1 MG/ML 10ML SYR IV PRN (07:05)
[2022-03-19] MEDS ORDERED: ePHEDrine sulfate 50 MG/ML AMP IV PRN (07:05)
[2022-03-19] MEDS ORDERED: ceFAZolin 330 MG/ML 1 GM VIAL ONE (07:05)
[2022-03-19] MEDS ORDERED: HYDROmorphone INJ 1 MG/ML SYRINGE IV PRN (07:05)
[2022-03-19] MEDS ORDERED: LABETALOL HCL IV 5 MG/ML 20ML IV PRN (07:05)
[2022-03-19] MEDS ORDERED: EPINEPHrine INJ 1 MG/ML AMP ONE (07:05)
[2022-03-19] MEDS ORDERED: GELATIN SPONGE SZ 100 ONE (07:05)
[2022-03-19] MEDS ORDERED: LIDOCAINE 1% LOCAL 20 ML VIAL ONE (07:05)
[2022-03-19] MEDS ORDERED: PHENYLEPHRINE 100MCG/ML 5ML SYR IV PRN (07:05)
[2022-03-19] MEDS ORDERED: ONDANSETRON INJ 2 MG/ML 2 ML VIAL IV PRN (07:05)
[2022-03-19] MEDS ORDERED: BUPIVACAINE 0.5 % 5 MG/1 ML MPF 30ML VIAL ONE (07:05)
[2022-03-19] MEDS ORDERED: MEPERIDINE HCL 25 MG/ML CARP/VIAL IV PRN (07:05)
[2022-03-19] MEDS ORDERED: fentaNYL citrate 100 MCG/2 ML VIAL IV PRN (07:05)
[2022-03-19] MEDS ORDERED: MIDAZOLAM HCL 1 MG/ML 2ML VIAL ONE (07:14)
--- NOTE | 2022-03-19 08:14 | History & Physical Report ---
Date of Service March 19, 2022 History of Present Illness Primary Care Provider: JASSI Mcclure Chief Complaint rm#7 here for f/u from hospital, stroke several weeks ago, gait imbalance, nausea, diaphoresis. Peripheral vision loss. History of Present Illness I the pleasure of seeing Lewis today for follow-up. As you know he is a 61-year-old gentleman who was admitted to [facility] with visual problems in his right eye. He has known atrial fibrillation. On his work-up at that time he was found to have a 99% narrowing of his left internal carotid artery. He is on aspirin and Xarelto. He has had no other problems with the right eye. He has no cerebrovascular sufficiency from the left carotid lesion. Due to the amount of narrowing present we recommended a left carotid endarterectomy. He is here for discussion. He also has known peripheral vascular occlusive disease with aortobifemoral bypass done in the past. Review of Systems 10 systems were reviewed. There are no positive findings other than the HPI. Physical Exam Vitals & Measurements HR: 68 (Monitored) BP: 140/82 SpO2: 99% WT: 67.7 kg Input and Output - Last 24 hours (Last 8 hours) No I/O Data Found: The patient is awake alert and oriented x3. His blood pressure is 130/80 on the left 140/82 on the right. Radials carotid supratemporal's are +2 bilaterally. There is a carotid bruit present on the left side. Lungs are clear. Heart had a regular regular rate. Abdominal exam is benign. No abnormal dilatation of his aortic graft was appreciated. Femoral pulses are +2 bilaterally. Neurologic exam is intact to motor and sensory function. Assessment/Plan 1. Occlusion and stenosis of left carotid artery At this point due to the amount of narrowing present recommended a left carotid endarterectomy. He understood the risks options and benefits and agreed to go with this procedure. This will be scheduled in the near future. Thank you very much for letting us participate in the care of this patient. Sincerely, Jessa Cabrera MD Ordered: Echo TransTHORacic TTE Complete Problem List/Past Medical History Ongoing Carotid stenosis CHF NYHA class I Chronic HFrEF (heart failure with reduced ejection fraction) Paroxysmal A-fib Pre-op examination PVD (peripheral vascular disease) Tobacco user Historical No qualifying data Procedure/Surgical History REMOVAL OF TONSILS (1999) Surgery, bone removed from the ear (1999) Oral surgery, teeth extracted (1997) Medications Inpatient No active inpatient medications Home allopurinol, 300 mg, PO, Daily AndroGel Pump 20.25 mg/actuation (1.62%) transdermal gel, See Instructions, 2 refills aspirin 81 mg oral delayed release tablet, 81 mg= 1 tab, PO, Daily atorvastatin 20 mg oral tablet, 40 mg= 2 tab, PO, Daily calcium (as carbonate) 500 mg oral tablet, chewable, 500 mg= 1 tab, PO, Daily Metoprolol Succinate ER 50 mg oral tablet, extended release, 50 mg= 1 tab, PO, bid Potassium/magnesium Aspar, PO, Daily Tadalafil (Eqv-Adcirca) 20 mg oral tablet, See Instructions, 4 refills Vitamin D3, 500 Int_Unit, PO, Daily Xarelto Starter Pack 15 mg-20 mg oral kit, See Instructions Allergies NKA Social History Smoking Status Current every day heavy smoker Tobacco Current every day smoker, Cigarettes, Started age 21 Years. 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 [place]-[address], [address] [place], [place] [address] Result Type: .Outpt Ltr Date of Service: March 01, 2022 09:48 EDT Authorization Status: Final Subject: Consult Note Author or Import Date: MD Cabrera Eugene J on March 01, 2022 09:48 EDT Verified By: MD Cabrera Eugene J on March 01, 2022 09:48 EDT Encounter info: [id number], [place] [id number], Clinic, 03/01/2022 - 03/01/2022 Allergies Allergy/AdvReac Type Severity Reaction Status Date / Time No Known Allergies Allergy Mild Verified 03/19/22 05:46 Home Medications Medication Instructions Recorded Confirmed Type magnesium aspartate-potassium 1 cap PO BID 10/18/21 03/19/22 History aspartate 250 mg-250 mg capsule allopurinol 300 mg tablet 300 mg PO HS 12/14/21 03/19/22 History calcium carbonate 500 mg calcium 500 mg PO HS 12/14/21 03/19/22 History (1,250 mg) tablet cholecalciferol (vitamin D3) 125 5,000 units PO HS 12/14/21 03/19/22 History mcg (5,000 unit) capsule rivaroxaban 20 mg tablet (Xarelto) 20 mg PO HS 12/14/21 03/19/22 History aspirin 81 mg tablet,delayed 81 mg PO QPM 03/06/22 03/19/22 History release atorvastatin 40 mg tablet 40 mg PO QPM 03/06/22 03/19/22 History metoprolol succinate 50 mg 50 mg PO BID 03/19/22 03/19/22 History tablet,extended release 24 hr (Toprol XL) Past Med/Surg History Medical History Alcohol dependence, continuous drinking behavior Atrial fibrillation rate controlled on beta esther - 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 Milton - no stents: LM - medium caliber, 20% ostial stenosis LAD -medium caliber, 40% mid segment stenosis, small distal vessel wraps around apex. Circumflex -large caliber, gives off large bifurcating OM1 with 30% proximal stenosis. RCA -dominant, small caliber, 40-50 % diffuse proximal disease. Distal vessel/right PDA without significant disease. History of colonoscopy History of tooth extraction S/P aortobifemoral bypass surgery (~09/27/20) @ [facility] [place] 09/[place] S/P tonsillectomy S/P wisdom tooth extraction Family History Father , age 75 from a "bone disease" Myocardial infarction Hypertension Mother , age 83 with dementia Dementia Sister Diabetes Other Malignant (primary) neoplasm, unspecified No family history of adverse response to anesthesia Denies family history of Ovarian cancer Prostate cancer Breast cancer Colorectal cancer Social History Smoking Status: Current every day smoker Tobacco Type: Cigarettes Age Started Using Tobacco: 20; packs per day: 2; Cigarettes Per Day: 1/2 pk/day; Second Hand Exposure: No; Do You Dip or Chew Tobacco: No; Tobacco Cessation Education Requested by Patient: No Hx Alcohol Use: Yes Alcohol type: hard liquor Alcohol Intake Frequency: 4 or More x per/Week Alcohol Intake Frequency Comment: see HPI Hx Substance Use: No Preferred Language: Polish Communication Ability: Effective 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 Beliefs That Will Affect Care: None marital status: Single Current Living Situation: Significant Other current occupational status: employed current occupation: [employer] How many Children do You have: 2 Other Information That Helps Us Care for You: No Feels Safe at Home: Yes Safety Concerns: Feels Safe At This Time Childhood Exposure to Second-Hand Smoke: Yes caffeine: Yes (soda) Dental Care, Regularly: No Physical Activity Frequency: Daily Seatbelt Use: sometimes Sunscreen Use: No Assistive Devices: Denture - Upper, Denture - Lower, Glasses and Hearing Aid - Bilateral Results & Data ([facility]) Vital Signs (Past 12 Hours) Vital Signs Temp Pulse Resp BP Pulse Ox O2 Del Method 03/19/22 05:49 36.4 C L 50 L 18 154/81 H 99 Room Air
--- NOTE | 2022-03-19 08:15 | History & Physical Bridge Note ---
Date of Service March 19, 2022 History & Physical Bridge Note I have examined the patient, reviewed the History & Physical and in the interval since the performance of the History & Physical I have noted the following changes of clinical significance: no changes noted
[2022-03-19] MEDS ORDERED: SUGAMMADEX SODIUM 200 MG/2 ML VIAL IV ONE (08:55)
[2022-03-19] MEDS ORDERED: ePHEDrine sulfate 50 MG/ML SYR ONE (09:00)
[2022-03-19] MEDS ORDERED: DEXAMETHASONE SOD INJ 4 MG/ML VIAL ONE (09:00)
[2022-03-19] MEDS ORDERED: LIDOCAINE 2% MPF LOCAL 5 ML VIAL INFIL ONE (09:00)
[2022-03-19] MEDS ORDERED: PHENYLEPHRINE HCL 10 MG/ML VIAL ONE (09:00)
[2022-03-19] MEDS ORDERED: LARYING-O-JET KIT (LTA) ONE (09:00)
[2022-03-19] MEDS ORDERED: ONDANSETRON INJ 2 MG/ML 2 ML VIAL ONE (09:00)
[2022-03-19] MEDS ORDERED: PROPOFOL IV EMULSION 10 MG/ML 20 ML VIAL IV ONE (09:00)
[2022-03-19] MEDS ORDERED: HEPARIN SOD (PORCINE) 1000 UNIT/ML ONE (09:16)
[2022-03-19] MEDS ORDERED: ROCURONIUM BROMIDE 10 MG/ML 5 ML VIAL IV ONE (09:38)
[2022-03-19] MEDS ORDERED: PROTAMINE SULFATE 10 MG/ML 5 ML VIAL ONE (10:48)
--- NOTE | 2022-03-19 11:14 | Operative Report ---
Post Operative Report Pre & Post Diagnosis Operation Date: 03/19/22 07:30 Pre-Op Diagnosis: stenosis of left carotid artery Post-Op Diagnosis: stenosis of left carotid artery I identified the patient and participated in the time-out.: Yes Procedure Operation Date: 03/19/22 07:30 Actual Procedures p Left Carotid Endarterectomy with bovine patch(Left) - Walter Cabrera MD Surgeon Walter Cabrera MD Manager Community Development none Estimated Blood Loss 50 Findings Consistent with Post-Op Diagnosis Specimens plaque Anesthesia Type General Complications none Disposition Accompanied Patient To Recovery: No Indications This is a 62-year-old male who was admitted to the hospital for visual disturbance in the right eye and was found to have an incidental preocclusive 99% narrowing of his left internal carotid artery. Endarterectomy was recommen ded. I have discussed the risks options and benefits of the procedure with the patient. The patient understands the risks options and benefits and agrees to the procedure. Description of Procedure The patient was taken to the operating room and placed in supine position. After general anesthesia was accomplished the left side of the neck was prepped and draped in a sterile manner. The patient was identified and a timeout performed. A longitudinal neck incision was then made coursing along the medial border of the sternocleidomastoid muscle. The incision was taken down through the platysmal layer. The facial vein was identified, ligated, and divided. The common carotid artery was then seen. It was dissected free down to the omohyoid muscle. The dissection was carried upward until the external carotid artery and superior thyroid artery was seen. The superior thyroid artery was slung with a 2-0 silk suture. The external carotid was slung with a red rubber vessel loop. Next the dissection was carried up along the internal carotid artery. This was carried upward to beyond the area of narrowing. The hypoglossal nerve was seen and preserved. He had cervicalis had to be divided and the hypoglossal nerve retracted to expose the internal carotid artery above the lesion. The patient was heparinized. After adequate heparinization was accomplished, the internal, external, and common carotid arteries were clamped. A longitudinal arteriotomy was started on the common carotid artery and extended upward along the internal carotid artery to a point beyond the area of narrowing. There was hemorrhagic calcified plaque of the internal carotid artery origin causing preocclusive narrowing. A shunt shunt was then placed in the internal, followed by the common carotid artery and held in place with Jasen clamps. There was good back bleeding seen from the internal carotid artery. The endarterectomy was then started in the appropriate plane on the common carotid artery. This was carried upward and the external carotid was everted and endarterectomized. The endarterectomy was then carried up along the internal carotid artery till a nice feathering breakoff point was accomplished beyond the end of the plaque. The endarterectomy was then carried down further on the common carotid artery. At end of the arteriotomy, the plaque was then transected. Under loop magnification, all loose debris and flaps werer removed. 370 tacking sutures were used on the distal breakoff point. There is no distal flap seen at the end of the endarterectomy site. The arteriotomy then closed using a bovine patch and a running 6-0 Prolene suture. This was done in the usual vascular fashion. Prior to completing the closure, the son shunt was removed and the internal and common carotid arteries were reclamped. Backbleeding and forward bleeding was allowed to occur. The flow surface was irrigated with heparinized saline. The final few sutures were then placed and securely tied. Clamps were then removed off the external and common carotid arteries. The clamp was then removed the internal carotid artery. Good distal flow was seen. Adequate hemostasis was seen of the patch. The wound was inspected and adequate hemostasis was obtained. The wound was irrigated with antibiotic solution. It was then closed with a running 3-0 Vicryl suture for the platysmal layer and a 4-0 subcuticular Vicryl suture for the skin edges. Dermabond was used for dressing. The patient left the operation room in satisfactory condition and tolerated the procedure well. All needle and sponge counts were correct at the end of the procedure. I attest to the content of the Intraoperative Record and any orders documented therein. Any exceptions are noted below.
[2022-03-19] MEDS ORDERED: MoRPHine SULFATE 4 MG/ML 1 ML CARP\\VIAL IV PRN (11:19)
[2022-03-19] MEDS ORDERED: oxyCODONE/ACETAMINOPHEN 5mg/325mg TAB PO PRN (11:19)
--- NOTE | 2022-03-19 11:49 | Anesthesiology Progress Note ---
Date of Service March 19, 2022 Anesthesia Post Procedure Vital Signs Vital Signs: Temp Pulse Resp BP BP Pulse Ox O2 Del Method 03/19/22 11:17 36.3 C L 85 12 147/93 H 96 Oxymask 03/19/22 05:49 36.4 C L 50 L 18 154/81 H 99 Room Air O2 Flow Rate 03/19/22 11:17 4 03/19/22 05:49 Transfer of Care Handoff Completed per policy Notes Mental Status: alert / awake / arousable Patient Amnestic to Procedure: Yes Nausea / Vomiting: adequately controlled Pain: adequately controlled Airway Patency, RR, SpO2: stable & adequate BP & HR: stable & adequate Hydration State: stable & adequate Anesthetic Complications: no major complications apparent and Pt Satisfied with anesthetic care Notes: The patient is awake and comfortable. His surgical site is dry, intact, and does not have any swelling. His vital signs are stable. He is able to move each of his upper and lower extremities on command. His smile is symmetrical. His tongue does deviate slightly to the left. Dr. Cabrera is aware and states that this is to be expected. Sign out was given to Dr. Seo in the ICU.
[2022-03-19] MEDS: LACTATED RINGER'S 1,000 ML IV SCH ×2 (12:49→18:41)
--- NOTE | 2022-03-19 15:28 | Critical Care Consultation ---
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 -Continue home statin, ASA. Cardiac S/P Carotid Endarterectomy: -Continue to monitor for complications from surgery at incision site as well as neurocognition. -Continue to monitor vitals. Atrial Fibrillation: -Patient rate controlled on Metoprolol succinate 50mg BID. -Anticoagulated with Xarelto daily. Continue home medications. PAD/CAD: -Continue home atorvastatin daily. Respiratory Hx smoking: No past history of pulmonary disease. Encourage smoking cessation. GI Heart healthy diet, clear liquid. Renal/Electrolytes No past history of renal disease. Strict I&O's. Endo No past history of diabetes or thyroid disease. Heme Monitor H&H. ID No concern for ID at this time. Lines/IV Access Peripheral. DVT Prophylaxis Xarelto 20mg qHS. Dispo: ICU. Supervising Physician Co-Signing Physician Notes Dr. Brito was resident physician during care of patient. I separately evaluated patient for ghotra portions of the history and the exam. I was present during the critical portion of medical decision making, and I discussed the case with the resident. I generally agree with the findings and plan. Patient able to eat, reports he has some numbness in the area of the incision site however feels near baseline. Physical exam he is a very mild isocoria which is likely secondary to injected local anesthetic. Close ICU observation. History of Present Illness Reason for Consultation: Post op endarterectomy monitoring. Requesting Physician: Dr. Cabrera Attending Physician: Walter Cabrera MD History of Present Illness Lewis is a 62 year old male w/ PmHx atrial fibrillation on Xarelto, hyperlipidemia, CAD, peripheral artery disease w/ 99% stenosis of L carotid artery admitted for L carotid endarterectomy w/ Dr. Cabrera. In January patient deve loped a visual defect of spot in the right lower corner of his vision which he describes as a bubble at the periphery. He was admitted to the hospital in January for the visual defect and was found to have 99% stenosis of origin of L ICA. He was seen by Dr. Cabrera who determined he would need an endarterectomy and was operated on this morning. Patient was seen at the bedside and denies pain, nausea, shortness of breath, fevers, chills. He was sleeping comfortably when I entered the room. Allergies Allergy/AdvReac Type Severity Reaction Status Date / Time No Known Allergies Allergy Mild Verified 03/19/22 05:46 Home Medications Medication Instructions Recorded Confirmed Type magnesium aspartate-potassium 1 cap PO BID 10/18/21 03/19/22 History aspartate 250 mg-250 mg capsule allopurinol 300 mg tablet 300 mg PO HS 12/14/21 03/19/22 History calcium carbonate 500 mg calcium 500 mg PO HS 12/14/21 03/19/22 History (1,250 mg) tablet cholecalciferol (vitamin D3) 125 5,000 units PO HS 12/14/21 03/19/22 History mcg (5,000 unit) capsule rivaroxaban 20 mg tablet (Xarelto) 20 mg PO HS 12/14/21 03/19/22 History aspirin 81 mg tablet,delayed 81 mg PO QPM 03/06/22 03/19/22 History release atorvastatin 40 mg tablet 40 mg PO QPM 03/06/22 03/19/22 History metoprolol succinate 50 mg 50 mg PO BID 03/19/22 03/19/22 History tablet,extended release 24 hr (Toprol XL) Patient History Medical History Alcohol dependence, continuous drinking behavior Atrial fibrillation rate controlled on beta esther - 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 Milton - no stents: LM - medium caliber, 20% ostial stenosis LAD -medium caliber, 40% mid segment stenosis, small distal vessel wraps around apex. Circumflex -large caliber, gives off large bifurcating OM1 with 30% proximal stenosis. RCA -dominant, small caliber, 40-50 % diffuse proximal disease. Distal vessel/right PDA without significant disease. History of colonoscopy History of tooth extraction S/P aortobifemoral bypass surgery (~09/27/20) @ [facility] 09/2021 S/P tonsillectomy S/P wisdom tooth extraction Family History Father , age 75 from a "bone disease" Myocardial infarction Hypertension Mother , age 83 with dementia Dementia Sister Diabetes Other Malignant (primary) neoplasm, unspecified No family history of adverse response to anesthesia Denies family history of Ovarian cancer Prostate cancer Breast cancer Colorectal cancer Social History Smoking Status: Current every day smoker Tobacco Type: Cigarettes Age Started Using Tobacco: 20; packs per day: 2; Cigarettes Per Day: 1/2 pk/day; Second Hand Exposure: No; Do You Dip or Chew Tobacco: No; Tobacco Cessation Education Requested by Patient: No Hx Alcohol Use: Yes Alcohol type: hard liquor Alcohol Intake Frequency: 4 or More x per/Week Alcohol Intake Frequency Comment: see HPI Hx Substance Use: No Preferred Language: Azerbaijani Communication Ability: Effective Conveyor Attendant Required: No Beliefs That Will Affect Care: None marital status: Single Current Living Situation: Significant Other current occupational status: employed current occupation: [employer] How many Children do You have: 2 Other Information That Helps Us Care for You: No Feels Safe at Home: Yes Safety Concerns: Feels Safe At This Time Childhood Exposure to Second-Hand Smoke: Yes caffeine: Yes (soda) Dental Care, Regularly: No Physical Activity Frequency: Daily Seatbelt Use: sometimes Sunscreen Use: No Assistive Devices: Denture - Upper, Denture - Lower, Glasses and Hearing Aid - Bilateral Review of Systems Constitutional: as per Subjective / HPI Physical Exam Constitutional: WD/WN, vitals as above Neck: Incisional scar along the neck without swelling or erythema. Respiratory: normal respiratory effort, lungs clear to auscultation Cardiovascular: RRR, no murmur, no edema Gastrointestinal (Abdomen): normal bowel sounds, soft, nontender, no hepatosplenomegaly Psychiatric: A+Ox3, euthymic affect Results & Data Results & Data ([facility]) Vital Signs (Past 12 Hours) Vital Signs Temp Pulse Pulse Resp BP BP BP 03/19/22 14:15 63 11 L 03/19/22 14:01 59 L 20 03/19/22 14:01 134/72 03/19/22 14:00 58 L 14 03/19/22 13:45 73 22 03/19/22 12:30 03/19/22 13:30 67 24 03/19/22 13:15 75 23 03/19/22 13:00 75 27 H 03/19/22 13:00 115/70 03/19/22 12:45 76 45 H 03/19/22 12:30 76 18 03/19/22 12:27 36.6 C 75 20 134/75 03/19/22 11:45 36.5 C 68 12 125/77 03/19/22 11:35 76 19 137/80 03/19/22 11:25 80 16 139/57 L 03/19/22 11:17 36.3 C L 85 12 147/93 H 03/19/22 05:49 36.4 C L 50 L 18 154/81 H Pulse Ox O2 Del Method O2 Flow Rate 03/19/22 14:15 98 Nasal Cannula 2 03/19/22 14:01 98 03/19/22 14:01 03/19/22 14:00 98 03/19/22 13:45 98 03/19/22 12:30 Nasal Cannula 2 03/19/22 13:30 98 03/19/22 13:15 97 03/19/22 13:00 96 03/19/22 13:00 03/19/22 12:45 96 03/19/22 12:30 90 Room Air 03/19/22 12:27 92 Nasal Cannula 2 03/19/22 11:45 95 Oxymask 4 03/19/22 11:35 94 Oxymask 4 03/19/22 11:25 94 Oxymask 4 03/19/22 11:17 96 Oxymask 4 03/19/22 05:49 99 Room Air Resident Activity Tracking Resident Involvement: Resident Care Provided Care Provided: Adult [facility] Medicine
[2022-03-19] MEDS: ceFAZolin 1000MG 1,000 MG/7.5 ML SYR IV SCH ×2 (17:37→23:18)
[2022-03-19] MEDS: METOPROLOL SUCC 50MG EXT REL TAB PO SCH (20:18)
[2022-03-19] MEDS ORDERED: allopurinoL 300 MG TAB PO SCH (21:00)
[2022-03-19] MEDS ORDERED: CALCIUM CARBONATE 1250MG TAB PO SCH (21:00)
[2022-03-19] MEDS ORDERED: CHOLECALCIFEROL 5,000 UNITS 125 MCG TAB PO SCH (21:00)
[2022-03-19] MEDS ORDERED: ASPIRIN 81 MG ECTAB PO SCH (21:00)
[2022-03-19] MEDS ORDERED: RIVAROXABAN 20 MG TAB PO SCH (21:00)
[2022-03-19] MEDS ORDERED: ATORVASTATIN 40 MG TAB PO SCH (21:00)
[2022-03-20] MEDS: LACTATED RINGER'S 1,000 ML IV SCH (00:33)
[2022-03-20 05:51] LABS: Basophils # (auto) 0.01 K/uL (0-0.2); Basophils % (auto) 0.1 %; Hematocrit (blood only) 37.4 % (40.1-51.0); Hemoglobin 13.1 g/dl (14.0-18.0); Immature Granulocytes # (auto) 0.04 K/uL (0.00-0.02); Immature Granulocytes % (auto) 0.4 %; Lymphocytes # (auto) 1.55 K/uL (1.2-3.4); Lymphocytes % (auto) 14.1 %; Mean Corpuscular Hemoglobin 33.8 pg (25.0-34.0); Mean Corpuscular Volume 96.4 fL (80.0-100.0); Mean Platelet Volume 9.8 fL (9.4-12.4); Monocytes # (auto) 0.49 K/uL (0.24-0.82); Monocytes % (auto) 4.5 %; Neutrophils # (auto) 8.89 K/uL (1.4-6.5); Neutrophils % (auto) 80.9 %; Platelet Count 142 K/uL (130-400); RDW Coefficient of Variation 13.3 % (11.5-14.5); RDW Standard Deviation 46.5 fL (36.4-46.3); Red Blood Count 3.88 M/uL (4.63-6.08); White Blood Count 10.98 K/ul (4.8-10.8)
[2022-03-20] MEDS: METOPROLOL SUCC 50MG EXT REL TAB PO SCH (07:26)
--- NOTE | 2022-03-20 09:20 | Billing Data ---
Date of Service March 19, 2022 Coding Level of Care Code 92771 Inpt Consult Level 3
--- NOTE | 2022-03-20 10:29 | Surgery Progress Note ---
Date of Service March 20, 2022 Assessment & Plan Admission and Anticipated Discharge Date Admission Date: March 19, 2022 Subjective [facility], [id number] Surgery Progress Note Signed Patient:MARISSA MONDRAGON Admit Date:03/12/22 MR#:[id number] Att Phy:Walter Cabrera M.D. Acct ID:[id number] Moraima Phy:Ishmael Melo MD Date:08/23/1937 Fam Phy: Age:84 Location:2W Sex:M Room/Bed:W255-2 cc: ~ *NOTICE TO RECEIVING GREEN PARTY/AGENCY This information is strictly Confidential and protected under [place] law. [place] law prohibits you from making any further disclosure of this information unless further disclosure is expressly permitted by the written consent of the person to whom it pertains or is authorized by law. A general authorization for the release of medical or other information is not sufficient for this purpose. Hospital accepts no responsibility if the information is made available to any other person, INCLUDING THE PATIENT. Date of Service March 20, 2022 Assessment & Plan (1) S/P carotid endarterectomy: Plan: Doing well post op without any focal deficits. D/C home today. Admission and Anticipated Discharge Date Admission Date: March 12, 2022 Subjective No complaints. Swallowing without difficulty. Voice without hoarseness. Denies focal deficits. Physical Exam Constitutional: WD/WN, vitals as above Neck: trachea midline Respiratory: normal respiratory effort and + respiratory distress Cardiovascular: Rate/Rhythm: regular rate and regular rhythm Extremities: normal capillary refill Musculoskeletal: no cyanosis or clubbing, extremities motor strength 5/5 Skin: + incision (dry and clean. Minimal swel ling) Neurologic: CN's II-XI intact bilaterally and moves all extremities Psychiatric: Orientation: alert and oriented x 3 Results & Data ([facility]) Vital Signs (Past 12 Hours) Vital Signs Temp Pulse Resp BP Pulse Ox O2 Del Method 03/20/22 08:00 70 19 95 03/20/22 08:00 135/82 03/20/22 07:00 56 L 13 97 03/20/22 07:00 139/74 03/20/22 08:00 36.6 C 03/20/22 06:37 65 14 151/67 H 96 Room Air 03/20/22 06:01 51 L 13 139/67 94 Room Air 03/20/22 05:00 53 L 14 111/76 95 Room Air 03/20/22 04:00 56 L 12 107/52 L 96 Room Air 03/20/22 03:00 58 L 16 106/55 L 94 Room Air 03/20/22 02:00 20 154/75 H 94 Room Air 03/20/22 01:00 55 L 18 132/70 94 Room Air 03/20/22 00:28 92 H 21 140/70 95 03/20/22 00:00 36.6 C 53 L 14 97 03/20/22 04:00 57 L 111/58 L 03/20/22 00:00 136/65 03/20/22 00:00 55 L 03/19/22 23:00 58 L 14 95 03/19/22 23:00 36.6 C 140/72 Room Air
--- NOTE | 2022-03-20 10:45 | Critical Care Progress Note ---
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 Neuro CAM ICU: Negative. No new focal deficits appreciated. 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 -Continue home statin, ASA. Cardiac S/P Carotid Endarterectomy: -Continue to monitor for complications from surgery at incision site as well as neurocognition. -Continue to monitor vitals. Atrial Fibrillation: -Patient rate controlled on Metoprolol succinate 50mg BID. -Anticoagulated with Xarelto daily. Continue home medications. PAD/CAD: -Continue home atorvastatin daily. Respiratory Hx smoking: No past history of pulmonary disease. Encourage smoking cessation. GI Heart healthy diet, clear liquid. Renal/Electrolytes No past history of renal disease. Strict I&O's. Endo No past history of diabetes or thyroid disease. Heme Monitor H&H. ID No concern for ID at this time. Lines/IV Access Peripheral. DVT Prophylaxis Xarelto 20mg qHS. Dispo: ICU, stable for discharge. Admission and Anticipated Discharge Date Admission Date: March 19, 2022 Subjective Patient seen at the bedside this morning without complaint. He denies any fevers, chills, shortness of breath, chest pain. He has been eating well. Review of Systems Constitutional: as per Subjective / HPI Physical Exam Constitutional: WD/WN, vitals as above Respiratory: normal respiratory effort, lungs clear to auscultation Cardiovascular: RRR, no murmur, no edema Gastrointestinal (Abdomen): normal bowel sounds, soft, nontender, no hepatosplenomegaly Psychiatric: A+Ox3, euthymic affect Results & Data Results & Data ([facility]) Vital Signs (Past 12 Hours) Vital Signs Temp Pulse Pulse Resp BP BP Pulse Ox 03/20/22 10:35 36.6 C 68 19 125/77 95 03/20/22 08:00 70 19 95 03/20/22 08:00 135/82 03/20/22 07:00 56 L 13 97 03/20/22 07:00 139/74 03/20/22 08:00 36.6 C 03/20/22 06:37 65 14 151/67 H 96 03/20/22 06:01 51 L 13 139/67 94 03/20/22 05:00 53 L 14 111/76 95 03/20/22 04:00 56 L 12 107/52 L 96 03/20/22 03:00 58 L 16 106/55 L 94 03/20/22 02:00 20 154/75 H 94 03/20/22 01:00 55 L 18 132/70 94 03/20/22 00:28 92 H 21 140/70 95 03/20/22 00:00 36.6 C 53 L 14 97 03/20/22 04:00 57 L 111/58 L 03/20/22 00:00 136/65 03/20/22 00:00 55 L 03/19/22 23:00 58 L 14 95 03/19/22 23:00 36.6 C 140/72 O2 Del Method 03/20/22 10:35 03/20/22 08:00 03/20/22 08:00 03/20/22 07:00 03/20/22 07:00 03/20/22 08:00 03/20/22 06:37 Room Air 03/20/22 06:01 Room Air 03/20/22 05:00 Room Air 03/20/22 04:00 Room Air 03/20/22 03:00 Room Air 03/20/22 02:00 Room Air 03/20/22 01:00 Room Air 03/20/22 00:28 03/20/22 00:00 03/20/22 04:00 03/20/22 00:00 03/20/22 00:00 03/19/22 23:00 03/19/22 23:00 Room Air Resident Activity Tracking Resident Involvement: Resident Care Provided Care Provided: Adult Hospital Medicine
[2022-03-22] MEDS ORDERED: HEPARIN 100 UNIT/ML 5ML FLUSH ONE (13:41)
--- NOTE | 2022-03-27 10:44 | Discharge Summary ---
Date of Service March 27, 2022 Admission HPI Per Admitting Provider Chief Complaint rm#7 here for f/u from hospital, stroke several weeks ago, gait imbalance, nausea, diaphoresis. Peripheral vision loss. History of Present Illness I the pleasure of seeing Lewis today for follow-up. As you know he is a 61-year-old gentleman who was admitted to [facility] with visual problems in his right eye. He has known atrial fibrillation. On his work-up at that time he was found to have a 99% narrowing of his left internal carotid artery. He is on aspirin and Xarelto. He has had no other problems with the right eye. He has no cerebrovascular sufficiency from the left carotid lesion. Due to the amount of narrowing present we recommended a left carotid endarterectomy. He is here for discussion. He also has known peripheral vascular occlusive disease with aortobifemoral bypass done in the past. Review of Systems 10 systems were reviewed. There are no positive findings other than the HPI. Physical Exam Vitals & Measurements HR: 68 (Monitored) BP: 140/82 SpO2: 99% WT: 67.7 kg Input and Output - Last 24 hours (Last 8 hours) No I/O Data Found: The patient is awake alert and oriented x3. His blood pressure is 130/80 on the left 140/82 on the right. Radials carotid supratemporal's are +2 bilaterally. There is a carotid bruit present on the left side. Lungs are clear. Heart had a regular regular rate. Abdominal exam is benign. No abnormal dilatation of his aortic graft was appreciated. Femoral pulses are +2 bilaterally. Neurologic exam is intact to motor and sensory function. Assessment/Plan 1. Occlusion and stenosis of left carotid artery At this point due to the amount of narrowing present recommended a left carotid endarterectomy. He understood the risks options and benefits and agreed to go with this procedure. This will be scheduled in the near future. Thank you very much for letting us participate in the care of this patient. Sincerely, Jessa Cabrera MD Ordered: Echo TransTHORacic TTE Complete Problem List/Past Medical History Ongoing Carotid stenosis CHF NYHA class I Chronic HFrEF (heart failure with reduced ejection fraction) Paroxysmal A-fib Pre-op examination PVD (peripheral vascular disease) Tobacco user Historical No qualifying data Procedure/Surgical History REMOVAL OF TONSILS (1999) Surgery, bone removed from the ear (1999) Oral surgery, teeth extracted (1997) Medications Inpatient No active inpatient medications Home allopurinol, 300 mg, PO, Daily AndroGel Pump 20.25 mg/actuation (1.62%) transdermal gel, See Instructions, 2 refills aspirin 81 mg oral delayed release tablet, 81 mg= 1 tab, PO, Daily atorvastatin 20 mg oral tablet, 40 mg= 2 tab, PO, Daily calcium (as carbonate) 500 mg oral tablet, chewable, 500 mg= 1 tab, PO, Daily Metoprolol Succinate ER 50 mg oral tablet, extended release, 50 mg= 1 tab, PO, bid Potassium/magnesium Aspar, PO, Daily Tadalafil (Eqv-Adcirca) 20 mg oral tablet, See Instructions, 4 refills Vitamin D3, 500 Int_Unit, PO, Daily Xarelto Starter Pack 15 mg-20 mg oral kit, See Instructions Allergies NKA Social History Smoking Status Current every day heavy smoker Tobacco Current every day smoker, Cigarettes, Started age 21 Years. Signature Line Electronic Signature on File Walter Cabrera MD Author Signature Dt/Tm: 03/01/2022 09:48 AM Wireless Network Engineer Arvin Diamond [facility] [place], [address] [place], [place] [address] Result Type: .Outpt Ltr Date of Service: March 01, 2022 09:48 EDT Authorization Status: Final Subject: Consult Note Author or Import Date: MD Cabrera Eugene J on March 01, 2022 09:48 EDT Verified By: MD Cabrera Eugene J on March 01, 2022 09:48 EDT Encounter info: [id number], [facility], Clinic, 03/01/2022 - 03/01/2022 Admission Exam Per Admitting Provider The patient is awake alert and oriented x3. His blood pressure is 130/80 on the left 140/82 on the right. Radials carotid supratemporal's are +2 bilaterally. There is a carotid bruit present on the left side. Lungs are clear. Heart had a regular regular rate. Abdominal exam is benign. No abnormal dilatation of his aortic graft was appreciated. Femoral pulses are +2 bilaterally. Neurologic exam is intact to motor and sensory function. Principal Diagnosis 1. s/p L CEA 2. Symptomatic L ICA stenosis Discharge Exam Constitutional WD/WN, vitals as above Neck trachea midline L neck incision C/D/I, mild edema, ecchymosis, tender Respiratory normal respiratory effort, lungs clear to auscultation Auscultation: + diminished lung sounds Cardiovascular Rate/Rhythm: regular rate and regular rhythm Vessels: + abnormal peripheral pulses Extremities: normal capillary refill Gastrointestinal (Abdomen) Inspection/Auscultation: abdomen normal to inspection and normal bowel sounds Percussion/Palpation: abdomen soft; abdomen nontender Musculoskeletal no cyanosis or clubbing, extremities motor strength 5/5 Skin no rashes, warm and dry Neurologic moves all extremities and awake; no focal motor deficits and not confused Psychiatric A+Ox3, euthymic affect Discharge Data Allergies Allergy/AdvReac Type Severity Reaction Status Date / Time No Known Allergies Allergy Mild Verified 03/19/22 05:46 Consultations 03/19/22 11:19 Consult Music Critic Routine Procedures Performed Operation Date: 03/19/22 07:30 Actual Procedures p Left Carotid Endarterectomy (Left) - Walter Cabrera MD Hospital Course (1) S/P carotid endarterectomy: Pt doing well POD #1 after L CEA. Will d/c home. Total Time Total Time Spent Total Time Spent (In Minutes): 0 Discharge Plan Discharge Items Patient Disposition: Home - Self-Care Reason For Visit: Artery Stenosis, Severe Discharge Diagnosis: Severe stenosis left internal carotid artery stenosis, left carotid endarterectomy Activity: Per Instructions section Non-emergency contact: Surgeon Call non-emergency contact if: your temperature is above 101.5, your wound has increased redness, your wound has increased drainage and your wound pain has increased Follow-up/Referrals: Didi Pop CRNP [Primary Care Provider] - Diet: Heart Healthy Add Attending Provider Instructions: SPECIAL CARE INSTRUCTIONS: Medications: * Continue to take Aspirin as directed. Incision Care: * You may shower, but do not rub incision. You may let the warm soapy water run over it. Be sure to dry the incision well after bathing. * Do not shave directly over the incision until it is healed. * DO NOT IMMERSE THE INCISION IN A TUB/POOL/etc. UNTIL HEALED. Restrictions: * Do not drive for at least one week or if you are still taking any narcotic pain medication. * Do not lift anything heavier than a gallon of milk for one week after going home. Possible Complications: * Numbness - It is normal to have some numbness around the incision. Numbness can extend beyond the incision to areas of the neck, ear and face. The numbness is due to bruising of nerves during the surgery and will gradually improve over a period of months. * Hoarseness/Difficulty Speaking and Swallowing - The bruising of nerves in the neck can also cause a hoarse voice, difficulty speaking or swallowing. This may improve over time, HOWEVER, if it continues for more than a few days please contact our office ([phone]). * Excessive Swelling - There will be some swelling immediately after surgery which usually resolves within one week. If you notice that the swelling is getting worse, notify your surgeon ([phone]). * Drainage/Bleeding - If there is any drainage or bleeding, it should be a very small amount (less than a teaspoon per day). If you have excessive bleeding or drainage from the incision, call your surgeon ([phone]) right away. ACTIVATION OF EMERGENCY MEDICAL SYSTEM: Call 911, immediately, if you experience any of the following: Warning Signs and Symptoms of Stroke: * Sudden numbness or weakness of the face, arm or leg, especially on one side of the body * Sudden confusion, trouble speaking or understanding * Sudden trouble seeing in one or both eyes * Sudden trouble walking, dizziness, loss of balance or coordination * Sudden severe headache with no cause Do not delay calling 911 if you experience any warning signs or symptoms of a stroke. Delay in seeking medical attention may affect what treatments can be given to you. Risk Factors for Stroke: You can reduce your chances of stroke by working with your medical provider to adopt a healthy lifestyle. Some specific ways to lower your chance of stroke are: * If you are a smoker, now is the time to stop smoking cigarettes * If you are diabetic, improve the control of your blood sugars * Avoid excessive amounts of alcohol * Control high blood pressure * Lose weight if you are overweight * Be sure to lead an active lifestyle * Eat a healthy diet low in salt, cholesterol and fat You should know about other risk factors for stroke that you are unable to control. These include: * Age 55 years or older * Male gender * Certain racial groups: , or / * Family History of Stroke, Mini stroke or Heart Attack * Sickle Cell Disease You will be receiving a call from the Vascular Surgery Nurse after you are discharged. FOLLOW UP VISIT: It is important for you to keep your follow up appointments with your medical provider. Keep any scheduled doctor appointments. Call [phone] to schedule a follow up appointment if one not already scheduled. Pending Studies at Discharge: No Stand-Alone Forms: My [facility], Smoking Cessation Medications and DC Order Prescriptions: New oxycodone-acetaminophen [Percocet] 2.5-325 mg tablet 1 tab PO Q6H PRN (Reason: pain) Qty: 7 0RF Continued magnesium, potassium aspartate 250-250 mg capsule 1 cap PO BID atorvastatin 40 mg tablet 40 mg PO QPM aspirin 81 mg tablet,delayed release (DR/EC) 81 mg PO QPM metoprolol succinate [Toprol XL] 50 mg tablet extended release 24 hr 50 mg PO BID calcium carbonate 500 mg calcium (1,250 mg) tablet 500 mg PO HS allopurinol 300 mg tablet 300 mg PO HS Rx Instructions: pt aware dose change, place on file till next refill cholecalciferol (vitamin D3) 5,000 unit capsule 5,000 units PO HS Xarelto 20 mg tablet 20 mg PO HS Rx Instructions: must administer with evening meal Discharge Orders: Discharge Order (Routine); Ordered 03/20/22 Ordered By: Walter Cabrera Admission Data Admit Date/Time: 03/19/22 11:19 Attending Provider: Walter Cabrera Admit Provider: Walter Cabrera Primary Care Provider: Didi Pop Other Providers: Clifford Seo Other Interventions: Discharge Summary Assessment (RN) Last Done: 03/20/22 10:35
== END 2022-03-20 10:58 | disposition home or self-care (01) | DRG 27 ==
LOC: ASU 05:29 → 1E 11:19